=== PATIENT | female | born 1960 | race Caucasian/White ===

== ENCOUNTER 2016-09-03 11:56 | Emergency (ER) | payer MEDICARE ==
[~2016-09-03] VITALS: Ht 160 cm; Wt 65.0 kg
[2016-09-03 12:11] VITALS: Ht 160 cm; Wt 65.0 kg
--- NOTE | 2016-09-03 12:47 | ERD ---
ER Documentation Chief Complaint Date/Time DATE: 09/03/16 TIME: 12:45 Chief Complaint BIB RA FOR EVAL OF ETOH HPI 55-year-old female brought in from the community because of alcohol intoxication in public. An innocent bystander saw the patient. The patient admits to drinking. She is homeless. Patient denies any falls or trauma she denies any suicidal or homicidal ideation. She denies any fevers, chills, chest pain, shortness of breath. The patient is asking for food. ROS All systems reviewed and are negative except as per history of present illness. Medications Home Meds No Active Prescriptions or Reported Meds Allergies Allergies: Coded Allergies: No Known Drug Allergies (Verified Allergy, Unknown, 12/18/13) PMhx/Soc History of Surgery: No (OVARIAN CYST REMOVED 1980) Anesthesia Reaction: No Hx Neurological Disorder: No Hx Respiratory Disorders: No Hx Cardiac Disorders: Yes (HTN) Hx Psychiatric Problems: No Hx Miscellaneous Medical Probl: No Hx Alcohol Use: Yes Hx Substance Use: Yes Hx Tobacco Use: No Smoking Status: Current every day smoker FmHx Family History: No diabetes Physical Exam Vitals Vital Signs Date Time Temp Pulse Resp B/P Pulse Ox O2 Delivery O2 Flow Rate FiO2 09/03/16 12:11 97.8 89 19 146/79 100 Physical Exam General: Disheveled and malodorous but no significant distress Head: Normocephalic, atraumatic. Eyes: Pupils equally reactive, EOM intact ENT: Moist mucous membranes Neck: Supple, no lymphadenopathy Respiratory: Lungs clear bilaterally, no distress Cardiovascular: RRR, no murmurs, rubs, or gallops Abdominal: Soft, non-tender, non-distended, no peritoneal signs : Deferred MSK: No edema, no unilateral swelling, 5/5 strength Neurologic: Slightly intoxicated however alert and oriented, moving all extremities, normal speech, no focal weakness, no cerebellar signs Skin: No rash, no evidence of trauma Psych: Normal mood, denies suicidal ideation Procedures/MDM MEDICAL DECISION MAKING: The patient's presentation is consistent with acute alcohol intoxication, mild. The patient is conversive and appropriate. The patient will be given food. I have a much lower clinical concern for clinically significant traumatic brain injury, meningitis, significant electrolyte disturbance The patient's workup will include appropriate laboratory testing and diagnostic imaging, as well as observation for sobriety. The patient's presentation is most consistent with acute alcohol intoxication leading to acute encephalopathy. The patient is protecting their airway. The patient has no signs or symptoms concerning for impending respiratory failure and does not require intubation at this time. The patient will require observation in the emergency room to allow for metabolization. Once the patient is able to ambulate on their own accord, navigate the community the patient can be safely discharged from the emergency room. ER COURSE: The patient continues to be well-appearing and steady on her feet. Prior to discharge the patient could navigate the community, she refuses shoulder. The patient is safe for discharge. I kept the patient and/or family informed of laboratory and diagnostic imaging results throughout the emergency room course. DISPOSITION PLAN: We discussed follow up with the patient's primary care doctor within 24 to 48 hours as needed. We also discussed return to the emergency room for worsening symptoms or worsening condition. Departure Diagnosis: Primary Impression: Alcohol intoxication Complication of substance-induced condition: uncomplicated Qualified Code: F10.120 - Alcohol intoxication, uncomplicated Condition: Stable SUMAN NEGRO MD Sep 03, 2016 12:47
[2016-09-03 16:00] VITALS: BP 115/79; PULSE 70; RESP 19; TEMP 97.8
== END 2016-09-03 16:31 | disposition home or self-care (01) ==
LOC: E/R 11:56
DX: F10.120 Alcohol abuse with intoxication, uncomplicated (principal); I10 Essential (primary) hypertension; F17.210 Nicotine dependence, cigarettes, uncomplicated; R40.2142 Coma scale, eyes open, spontaneous, at arrival to emergency department; R40.2252 Coma scale, best verbal response, oriented, at arrival to emergency department; R40.2362 Coma scale, best motor response, obeys commands, at arrival to emergency department
CPT/HCPCS: 99283

== ENCOUNTER 2017-05-18 16:21 | Inpatient (IN) | payer MEDICARE ==
[~2017-05-18] VITALS: Ht 160 cm; Wt 59.0 kg
[2017-05-18] MEDS ORDERED: SOD CHLORIDE 0.9% 1,000 ML IV STA (17:05)
[2017-05-18 17:45] LABS: BASOPHILS % 0.6 % (0.0-2.0); EOSINOPHILS % 0.6 % (0.0-7.0); HEMATOCRIT 34.1 % (37.0-47.0); HEMOGLOBIN 11.1 g/dl (12.0-16.0); LYMPHOCYTES % 19.5 % (15.0-51.0); MEAN CORPUSCULAR HEMOGLOBIN 33.1 pg (29.0-33.0); MEAN CORPUSCULAR HGB CONC 32.6 g/dl (32.0-37.0); MEAN CORPUSCULAR VOLUME 101.8 fl (82.0-101.0); MONOCYTE # 0.7 10^3/ul (0.3-0.9); MONOCYTES % 14.4 % (0.0-11.0); NEUTROPHIL # 3.2 10^3/ul (1.6-7.5); NEUTROPHILS % 62.2 % (39.0-77.0); NUCLEATED RED BLOOD CELLS # 0.2 10^3/ul (0.0-0.0); NUCLEATED RED BLOOD CELLS% 3.3 /100WBC (0.0-0.0); PLATELET COUNT 110 10^3/UL (140-415); RED BLOOD COUNT 3.35 10^6/ul (4.20-5.40); RED CELL DISTRIBUTION WIDTH 18.2 % (11.5-14.5); WHITE BLOOD COUNT 5.1 10^3/ul (4.8-10.8)
--- NOTE | 2017-05-18 18:06 | RADRPT ---
PROCEDURE: Right upper quadrant ultrasound CLINICAL INDICATION: Alcoholic. Jaundice. TECHNIQUE: Multiple real-time images were acquired of the patient's abdomen and right retroperiton eum utilizing a high resolution transducer. COMPARISON: CT dated 08/10/2013 FINDINGS: The liver is increased in echogenicity and measures 19.14 cm. No focal hepatic masses are seen. Th e gallbladder is physiologically distended. There is no evidence of gallstones, gallbladder wall th ickening, or pericholecystic fluid. The intra and extrahepatic bile ducts are normal in caliber. T he common bile duct measures 2.83 mm. Midline images demonstrate the pancreas to be normal in echogenicity without obvious inflammatory ch allen. Survey views of the right kidney demonstrate no evidence of hydronephrosis or renal calculi. The ri ght kidney measures 11.2 cm. IMPRESSION: 1. No evidence of cholelithiasis or acute cholecystitis. 2. No biliary duct dilatation. 3. Fatty liver 4. Borderline hepatomegaly RPTAT: HH .Eliezer Fernando MD, Date Time Electronically viewed and signed by .Eliezer Fernando MD, on 05/18/2017 18:05 .W/
[2017-05-18 18:09] LABS: ALBUMIN 4.2 g/dl (3.3-4.9); ALBUMIN/GLOBULIN RATIO 1.05; BILIRUBIN,DIRECT 11.2 mg/dl (0.00-0.20); BILIRUBIN,INDIRECT 2.3 mg/dl (0-1.1); BILIRUBIN,TOTAL 13.5 mg/dl (0.2-1.3); CALCIUM 10.3 mg/dl (8.4-10.2); CREATININE 0.59 mg/dl (0.44-1.00); TOTAL PROTEIN 8.2 g/dl (6.1-8.1)
[2017-05-18 18:29] LABS: POTASSIUM 2.9 mmol/L (3.5-5.1)
[2017-05-18] MEDS ORDERED: POTASSIUM CHLORIDE (SR) 20 MEQ TAB PO STA (18:58)
[2017-05-18] MEDS ORDERED: ACETAMINOPHEN 325 MG TAB PO PRN ×2 (20:00→21:00)
[2017-05-18] MEDS ORDERED: ONDANSETRON 4 MG INJ IV PRN ×2 (20:00→21:00)
--- NOTE | 2017-05-18 20:09 | ERA ---
ER Documentation Chief Complaint Date/Time DATE: 05/18/17 TIME: 20:01 Chief Complaint bib ems from clinic for cc jaundice HPI . 56-year-old female was sent from the clinic for acute onset jaundice and icterus that has only been going on for supposedly a few days. Patient stated that she does drink alcohol chronically. States that her liver enzymes were checked a few months ago and were normal. No alcohol intake today. ROS All systems reviewed and are negative except as per history of present illness. Medications Home Meds No Active Prescriptions or Reported Meds Allergies Allergies: Coded Allergies: No Known Drug Allergies (Verified Allergy, Unknown, 12/18/13) PMhx/Soc History of Surgery: No (OVARIAN CYST REMOVED 1980,COLON SX) Anesthesia Reaction: No Hx Neurological Disorder: No Hx Respiratory Disorders: No Hx Cardiac Disorders: Yes (HTN) Hx Psychiatric Problems: No Hx Miscellaneous Medical Probl: No Hx Alcohol Use: Yes Hx Substance Use: Yes Hx Tobacco Use: No Physical Exam Vitals Vital Signs Date Time Temp Pulse Resp B/P Pulse Ox O2 Delivery O2 Flow Rate FiO2 05/18/17 16:29 98.7 103 20 157/87 100 Physical Exam Const: [] No distress Head: Atraumatic Eyes: Market scleral icterus, neon yellow, EOMI, PERRLA ENT: Normal External Ears, Nose and Mouth. Neck: Full range of motion..~ No meningismus. Resp: Clear to auscultation bilaterally Cardio: Regular rate and rhythm, no murmurs Abd: Soft, non tender, non distended. Normal bowel sounds. Abdominal percussion showing liver approximately 9 cm Skin: No petechiae or rashes Back: No midline or flank tenderness Ext: No cyanosis, or edema Neur: Awake and alert and oriented x 3, no focal deficits. Psych: Normal Mood and Affect Result Diagram: 05/18/17 1720 05/18/17 1720 Results 24 hrs Laboratory Tests Test 05/18/17 17:20 White Blood Count 5.110^3/ul Red Blood Count 3.3510^6/ul Hemoglobin 11.1g/dl Hematocrit 34.1% Mean Corpuscular Volume 101.8fl Mean Corpuscular Hemoglobin 33.1pg Mean Corpuscular Hemoglobin Concent 32.6g/dl Red Cell Distribution Width 18.2% Platelet Count 40548^3/UL Mean Platelet Volume 12.0fl Neutrophils % 62.2% Lymphocytes % 19.5% Monocytes % 14.4% Eosinophils % 0.6% Basophils % 0.6% Nucleated Red Blood Cells % 3.3/100WBC Neutrophils # 3.210^3/ul Lymphocytes # 1.010^3/ul Monocytes # 0.710^3/ul Eosinophils # 0.010^3/ul Basophils # 0.010^3/ul Nucleated Red Blood Cells # 0.210^3/ul Sodium Level 140mmol/L Potassium Level 2.9mmol/L Chloride Level 99mmol/L Carbon Dioxide Level 26mmol/L Anion Gap 18 Blood Urea Nitrogen 3mg/dl Creatinine 0.59mg/dl Glucose Level 104mg/dl Calcium Level 10.3mg/dl Total Bilirubin 13.5mg/dl Direct Bilirubin 11.20mg/dl Indirect Bilirubin 2.3mg/dl Aspartate Amino Transf (AST/SGOT) 633IU/L Alanine Aminotransferase (ALT/SGPT) 218IU/L Alkaline Phosphatase 945IU/L Total Protein 8.2g/dl Albumin 4.2g/dl Globulin 4.00g/dl Albumin/Globulin Ratio 1.05 Lipase 251U/L Current Medications Medications (Trade) Dose Ordered Sig/Felicia Route PRN Reason Start Time Stop Time Status Last Admin Dose Admin Sodium Chloride (NS) 1,000 ml @ 1,000 mls/hr Q1H STAT IV 05/18/17 17:05 05/18/17 18:04 DC 05/18/17 17:35 Potassium Chloride (Klor-Con 20) 40 meq ONCE STAT PO 05/18/17 18:58 05/18/17 19:05 DC 05/18/17 19:15 Procedures/MDM 56-year-old female with market hyperbilirubinemia with liver failure. This is due to alcoholism. Over this is new onset with the patient's jaundice. She also had hypokalemia and was given K-Dur tab.Patient does not have good outpatient follow-up. She is she would definitely benefit from admission for GI consult. I very spoken Dr. Puentes who is going to see the patient in the hospital. She will be admitted to prevent progression to the transplant needed fulminant liver failure. Spoke with Dr. Dr. Pena will be admitting to [facility]. Right upper quadrant ultrasound interpretation: Fatty liver with no other acute process that I can see. No gallstones, no pericystic colic fluid or gallbladder wall thickening, no dilated duct. Departure Diagnosis: Primary Impression: Acute liver failure Additional Impressions: Hyperbilirubinemia Hypokalemia Thrombocytopenia Condition: Serious ROBERTVALENTIN DO May 18, 2017 20:09
[2017-05-18 20:23] VITALS: TEMP 98.5
[2017-05-18] MEDS ORDERED: SOD CHLORIDE 0.9% 1,000 ML IV SCH (20:50)
[2017-05-18] MEDS ORDERED: NACL 0.9% 3 ML SYG IV SCH (21:00)
[2017-05-18] MEDS: FAMOTIDINE 20 MG TAB PO SCH (21:37)
[2017-05-18] MEDS ORDERED: LORAZEPAM 2 MG INJ IV ONE (22:30)
[2017-05-19 00:16] VITALS: BP 139/79; RESP 20
[2017-05-19 01:17] VITALS: Ht 160 cm; Wt 59.0 kg
[2017-05-19 02:00] VITALS: BP 125/66; PULSE 77; RESP 18
[2017-05-19 05:48] LABS: HAAIG REFLEX REFLEX FILED
[2017-05-19 05:55] LABS: BASOPHILS % 0.5 % (0.0-2.0); HEMATOCRIT 27.8 % (37.0-47.0); LYMPHOCYTES # 1.1 10^3/ul (0.8-2.9); LYMPHOCYTES % 28.6 % (15.0-51.0); MEAN CORPUSCULAR HEMOGLOBIN 33.3 pg (29.0-33.0); MEAN CORPUSCULAR HGB CONC 32.4 g/dl (32.0-37.0); MEAN PLATELET VOLUME 11.6 fl (7.4-10.4); MONOCYTE # 0.6 10^3/ul (0.3-0.9); MONOCYTES % 15.9 % (0.0-11.0); NEUTROPHILS % 51.7 % (39.0-77.0); NUCLEATED RED BLOOD CELLS # 0.1 10^3/ul (0.0-0.0); NUCLEATED RED BLOOD CELLS% 2.8 /100WBC (0.0-0.0); PLATELET COUNT 102 10^3/UL (140-415); RED CELL DISTRIBUTION WIDTH 18.8 % (11.5-14.5); WHITE BLOOD COUNT 3.9 10^3/ul (4.8-10.8)
--- NOTE | 2017-05-19 06:27 | HP ---
Date/Time of Note Date/Time of Note DATE: 05/19/17 TIME: 06:09 Assessment/Plan VTE Prophylaxis VTE Prophylaxis Intervention: SCD's Lines/Catheters IV C[facility]ter Type [facility]from [facility]): Peripheral IV Urinary Cath still in place: No Assessment/Plan Chief Complaint/Hosp Course This is a 56-year-old female being [facility] floor for: #1 Jaundice: Elevated liver function tests including a direct bilirubin level of 10 reflecting likely underlying acute liver failure. Patient does have a previous history of alcohol use which likely could be the culprit however we will also check a hepatitis panel, alpha-1 antitrypsin, serum plasma, as well as for autoimmune hepatitis. Will check a reticulocyte count and lactate dehydrogenase. Will not provide any glucocorticoids as the data does not support the use of this at this time. Will consult GI for further evaluation. Will order MRI of the abdomen. Patient will likely need a liver biopsy. Will check a blood alcohol level and an ammonia level, and start lactulose as indicated #2 Macrocytic anemia: We will check iron studies, B12, folate levels. #3 hypokalemia: Repleted in the ED, will repeat a BMP and replete as indicated #4 EtOH abuse: Patient reports she has a daily drinking history of only 1 beer in the last 6 months and prior to that she was a heavy drinker. Will obtain blood alcohol level. As needed Ativan as needed. #5 DVT GI prophylaxis: SCDs, acid mauro Further treatment strategy will be implemented as per the clinical course Problems: HPI/ROS Admit Date/Time Admit Date/Time May 18, 2017 at 20:00 Hx of Present Illness Chief complaint: Yellow all over This is a 56-year-old female was sent from the clinic for acute onset jaundice and icterus that has only been going on for supposedly a few days. Patient states that she noticed yesterday her eyes turning yellow and then today her skin was yellow. She reports that she was a heavy drinker 6 months ago however now only drinks about 1 beer a day. She reports that 3 months ago she had her LFTs checked and they were all normal. Patient denies any fevers. Denies any nausea or vomiting. She does reports that she lives in her van as she is homeless and in the daytime sugars a house with multiple people. She does state that she has a back wound secondary to her sleeping on her van. Denies any history of cirrhosis. Allergies: NKDA Medications: None ROS Const: As per HPI Eyes : As per HPI ENT: No pain, sore throat, congestion, congestion, dysphagia or discharge Respiratory: No shortness of breath, cough, sputum, wheezing, or pleuritic pain Cardiovascular: No chest pain, palpitation, PND, or edema GI : As per HPI Genitourinary: No dysuria, hematuria, flank pain , discharge or CVA tenderness Musculoskeletal: No joint pain, back pain, neck pain, restricted range of motion in neck or joints Skin: As per HPI Neuro: No headache, dizziness, syncope, seizure, focal weakness Endocrine: No polyuria, polydipsia, temperature intolerance Psych: No hallucination, depression, anxiety or suicidal ideation PMH/Family/Social Past Medical History Insomnia, PCOS Past Surgical History Ovarian surgery secondary to PCOS, bowel obstruction surgery Family History Significant Family History: diabetes Social History Alcohol Use: other (Reports one beer a day for the last 6 months prior to that she was a heavy drinker) Smoking Status: Never smoker Drug Use: none Exam/Review of Systems Vital Signs Vitals Vital Signs Date Time Temp Pulse Resp B/P Pulse Ox O2 Delivery O2 Flow Rate FiO2 05/19/17 02:00 97.9 77 18 125/66 98 Room Air Intake and Output 05/18/17 05/18/17 05/19/17 15:00 23:00 07:00 Intake Total 300 ml Output Total 600 ml Balance -300 ml Exam Exam General: Patient is lying in bed in no acute distress, she is displaying generalized jaundice HEENT: Bilateral icterus, normocephalic atraumatic Neck: Supple with full range of motion. No rigidity or meningismus Lungs: Clear to auscultation bilaterally no crackles rales or wheezing Heart: Normal S1-S2, Regular rhythm and rate. No overt murmurs appreciated Abdomen: Soft, right upper quadrant tenderness to palpation, suspected hepatomegaly on palpation, Extremities: Normal to inspection, no edema no cyanosis Neurologic: Normal mental status, speech normal, cranial nerves II through XII are intact, motor and sensory are intact, no focal weakness Skin: Jaundice of the face and chest and bilateral upper extremities, Additional Comments PROCEDURE: Right upper quadrant ultrasound CLINICAL INDICATION: Alcoholic. Jaundice. TECHNIQUE: Multiple real-time images were acquired of the patient's abdomen and right retroperitoneum utilizing a high resolution transducer. COMPARISON: CT dated 08/10/2013 FINDINGS: The liver is increased in echogenicity and measures 19.14 cm. No focal hepatic masses are seen. The gallbladder is physiologically distended. There is no evidence of gallstones, gallbladder wall thickening, or pericholecystic fluid. The intra and extrahepatic bile ducts are normal in caliber. The common bile duct measures 2.83 mm. Midline images demonstrate the pancreas to be normal in echogenicity without obvious inflammatory change. Survey views of the right kidney demonstrate no evidence of hydronephrosis or renal calculi. The right kidney measures 11.2 cm. IMPRESSION: 1. No evidence of cholelithiasis or acute cholecystitis. 2. No biliary duct dilatation. 3. Fatty liver 4. Borderline hepatomegaly RPTAT: HH .Eliezer Fernando MD, MD Date Time Electronically viewed and signed by .Eliezer Fernando MD, on 05/18/2017 18:05 Labs Result Diagram: 05/18/17 1720 05/18/17 1720 Medications Medications Current Medications Sodium Chloride (NS) 1,000 ml @ 60 mls/hr [id number] IV Last administered on 05/18 23:59; Admin Dose 60 MLS/HR; Start 05/18/17 at 20:50 Ondansetron HCl (Zofran Inj) 4 mg Q6H PRN IV NAUSEA AND/OR VOMITING; Start at 21:00 Acetaminophen (Tylenol Tab) 650 mg Q6H PRN PO PAIN LEVEL 1-3 OR FEVER; Start at 21:00 Famotidine (Pepcid) 20 mg Q12 PO Last administered on 05/18/17 21:37; Admin Dose 20 MG; Start 05/18/17 at 21:00 Lorazepam (Ativan) 0.5 mg ONCE ONCE IV ; Start 05/19/17 at 08:30; Stop at 08:31 CHRISTINE MOYA May 19, 2017 06:24
[2017-05-19] MEDS: LACTULOSE 30ML CUP PO SCH ×3 (06:38→17:15)
[2017-05-19 06:52] LABS: ALBUMIN 2.9 g/dl (3.3-4.9); BILIRUBIN,DIRECT 5.5 mg/dl (0.00-0.20); BILIRUBIN,INDIRECT 2.1 mg/dl (0-1.1); BILIRUBIN,TOTAL 7.6 mg/dl (0.2-1.3); CALCIUM 8.8 mg/dl (8.4-10.2); CHOL/HDL RATIO 6.9 RATIO; CREATININE 0.54 mg/dl (0.44-1.00); MAGNESIUM 1.2 mg/dl (1.7-2.5); PHOSPHORUS 2.2 mg/dl (2.5-4.9); TOTAL PROTEIN 5.8 g/dl (6.1-8.1)
[2017-05-19 06:59] LABS: T3 UPTAKE 46.6 % (23.5-40.5)
[2017-05-19 07:06] LABS: POTASSIUM 2.9 mmol/L (3.5-5.1)
[2017-05-19 07:12] LABS: THYROID STIMULATING HORMONE 5.48 MIU/L (0.465-4.680)
[2017-05-19 07:19] LABS: RETICULOCYTE COUNT % 6.6 % (0.5-1.5)
[2017-05-19 07:37] LABS: INR 0.96; PROTIME 12.8 Sec (12.2-14.2)
[2017-05-19 07:38] LABS: PARTIAL THROMBOPLASTIN TIME 24.8 Sec (25.0-35.0)
[2017-05-19 08:02] VITALS: BP 124/84; RESP 18
[2017-05-19] MEDS ORDERED: LORAZEPAM 2 MG INJ IV ONE (08:30)
[2017-05-19] MEDS: FAMOTIDINE 20 MG TAB PO SCH ×2 (08:33→20:12)
[2017-05-19 08:38] LABS: IRON 144 ug/dl (35-150)
[2017-05-19] MEDS: POTASSIUM CHLORIDE 250 ML IVPB SCH ×2 (08:45→14:17)
[2017-05-19 08:48] LABS: TOTAL IRON BINDING CAPACITY 217 ug/dl (241-421)
[2017-05-19 09:28] LABS: HEPATITIS B CORE ANTIBODY NEGATIVE (NEGATIVE)
[2017-05-19 09:44] LABS: FOLATE 16.9 ng/ml (2.8-20.0)
[2017-05-19] MEDS ORDERED: POTASSIUM CHLORIDE (SR) 20 MEQ TAB PO STA (10:06)
[2017-05-19] MEDS ORDERED: POTASSIUM CHLORIDE 250 ML IVPB ONE (10:30)
[2017-05-19 14:59] VITALS: BP 120/78; RESP 18
--- NOTE | 2017-05-19 16:29 | RADRPT ---
PROCEDURE: MRI Abdomen without contrast and MRCP. CLINICAL INDICATION: Liver failure. Jaundice. TECHNIQUE: Multiplanar and multisequence MRI of the abdomen and MRCP was performed without contrast . 3-D/multiplanar reformations were performed by the technologist and an independent workstation. E valuation is partially limited due to motion artifact. COMPARISON: Abdominal ultrasounds dated 05/18/2017 and 07/16/2015. CT dated 08/10/2013. FINDINGS: MRI Abdomen: The visualized lung bases are grossly clear and the visualized heart is unremarkable. There is diffuse fatty infiltration of the liver, which is at the upper limits of normal in size ngoc suring 17.7 cm in length. The spleen and adrenal glands are unremarkable. The pancreas is normal in appearance with focal mass lesion. There is bilateral extrarenal pelvis. There are no renal masses or hydronephrosis. The aorta is nonaneurysmal. There is a solitary enlarged periportal node measuring 11 mm in short a xis. There is no retroperitoneal adenopathy. The visualized bowel demonstrates no wall thickening or evidence of obstruction. No concerning marrow signal abnormality is identified. MRCP: There is no intra or extrahepatic biliary ductal dilatation or filling defect within the bili oskar tree. There is no pancreatic ductal dilatation or intraluminal filling defect. There are tiny d ilated radicles arising from the pancreatic duct throughout the pancreas The gallbladder is normal i n appearance with no cholelithiasis, wall thickening, or pericholecystic fluid or inflammatory greco e. IMPRESSION: 1. Borderline hepatomegaly and hepatic steatosis. 2. Solitary enlarged periportal node measuring 11 mm in short axis, which is nonspecific. Attention on follow-up is recommended. 3. Unremarkable MRCP. 4. Tiny dilated radicles arising from the pancreatic duct throughout the pancreas, likely of little clinical significance. RPTAT: [facility] .Harry Barragan MD, MD Date Time Electronically viewed and signed by .Harry Barragan MD, MD on 05/19/2017 16:29 .P/
--- NOTE | 2017-05-19 18:15 | CONS ---
Date/Time of Note Date/Time of Note DATE: 05/19/17 TIME: 18:15 Assessment/Plan Assessment/Plan Additional Assessment/Plan Assessment: * Abnormal liver function test * Most likely alcohol induced liver disease as hepatitis serologies negative, all other serologies pending i.e. DERIK, ASMA * Alcohol abuse * Patient claims drinking only 1 beer every morning reliability questionable Plan: * Monitor liver function test * Await other serologies * Abstinence Consultation Date/Type/Reason Admit Date/Time May 18, 2017 at 20:00 Date of Consultation: May 18, 2017 Reason for Consultation Jaundice Hx of Present Illness 56-year-old female chronic ethanol abuse, hospitalized with abnormal liver function test. Possibility of nonalcoholic liver disease is being ruled out although she probably suffers from alcoholic hepatitis superimposed on chronic liver disease. At the present time the patient appears comfortable denies abdominal pain, nausea vomiting. Laboratories have been sent and are pending at this time. I will follow the patient. Constitutional: improved, no complaints Eyes: no complaints ENT: no complaints Respiratory: no complaints Cardiovascular: no complaints Gastrointestinal: no complaints, other (See HPI) Genitourinary: no complaints Musculoskeletal: no complaints Skin: no complaints Neurologic: no complaints Endocrine: no complaints Lymphatic: no complaints Psychological: nl mood/affect, no complaints Immunologic: no complaints Past Medical History Medical History: no pertinent history Past Surgical History Past Surgical Hx: no surgical history Family History Significant Family History: no pertinent family hx Social History Alcohol Use: other (Patient reports 1 beer a day which is not corroborated and appears unlikely) Smoking Status: Never smoker Drug Use: none Exam/Review of Systems Vital Signs Vitals Vital Signs Date Time Temp Pulse Resp B/P Pulse Ox O2 Delivery O2 Flow Rate FiO2 05/19/17 14:59 98.3 96 18 120/78 99 05/19/17 02:00 Room Air Intake and Output 05/18/17 05/18/17 05/19/17 15:00 23:00 07:00 Intake Total 300 ml Output Total 600 ml Balance -300 ml Exam PHYSICAL EXAMINATION: GENERAL: Well developed, well nourished, alert & oriented x 3, in no acute distress SKIN: Jaundiced. No lesions, positive stigmata chronic liver disease, no evidence of bleeding diathesis LYMPHATIC: No palpable lymphadenopathy. HEAD: Normocephalic, atraumatic, no tenderness. EYES: Pupils equal reactive to light and accommodation, full extraocular movements, sclera clear, non-icteric, no discharge. EARS/NOSE AND THROAT: Ears normal, nose normal, oropharynx normal, oral membranes well hydrated without lesions. NECK: Supple, no masses, thyroid normal, JVP within normal limits, carotids normal without bruits. CHEST: Inspection within normal limits, breasts grossly normal. CARDIOVASCULAR: Heart: Regular rate and rhythm, no murmurs, gallops or rubs. Peripheral pulses present within normal limits, no cyanosis, clubbing or edemas. No pulsatile abdominal mass RESPIRATORY: Lungs clear to auscultation and percussion, no wheezing, no rubs GASTROINTESTINAL AND LIVER: Abdomen: Soft, non tenderness, non-distended, no hernias, no masses, no organomegaly, no ascites, no guarding, no rebound tenderness, normoactive bowel sounds. Rectal: Deferred. GENITOURINARY: [Female genitalia within normal limits.] MUSCULO-SKELETAL: Gait and station within normal limits, range of motion adequate. Results Result Diagram: 05/19/17 0452 05/19/17 0452 Results 24 hrs Laboratory Tests Test 05/18/17 20:40 05/19/17 04:52 05/19/17 04:58 05/19/17 05:00 Ammonia 72 H White Blood Count 3.9 #L Red Blood Count 2.70 L Hemoglobin 9.0 L Hematocrit 27.8 L Mean Corpuscular Volume 103.0 H Mean Corpuscular Hemoglobin 33.3 H Mean Corpuscular Hemoglobin Concent 32.4 Red Cell Distribution Width 18.8 H Platelet Count 102 L Mean Platelet Volume 11.6 H Neutrophils % 51.7 Lymphocytes % 28.6 Monocytes % 15.9 H Eosinophils % 1.0 Basophils % 0.5 Nucleated Red Blood Cells % 2.8 H Neutrophils # 2.0 Lymphocytes # 1.1 Monocytes # 0.6 Eosinophils # 0.0 Basophils # 0.0 Nucleated Red Blood Cells # 0.1 H Sodium Level 139 Potassium Level 2.9 *L Chloride Level 104 Carbon Dioxide Level 28 Anion Gap 10 # Blood Urea Nitrogen 3 L Creatinine 0.54 Glucose Level 102 Hemoglobin A1c 5.1 Calcium Level 8.8 Phosphorus Level 2.2 L Magnesium Level 1.2 L Total Bilirubin 7.6 #H Direct Bilirubin 5.50 #H Indirect Bilirubin 2.1 H Aspartate Amino Transf (AST/SGOT) 372 H Alanine Aminotransferase (ALT/SGPT) 161 H Alkaline Phosphatase 614 H Total Protein 5.8 #L Albumin 2.9 #L Globulin 2.90 Albumin/Globulin Ratio 1.00 Triglycerides Level 178 H Cholesterol Level 257 H LDL Cholesterol, Calculated 184 HDL Cholesterol 37 Cholesterol/HDL Ratio 6.9 Thyroid Stimulating Hormone (TSH) 5.480 H Free Thyroxine Index 2.14 Thyroxine (T4) 4.6 L Triiodothyronine (T3) Uptake 46.6 H Hepatitis A Antibody Total NEGATIVE Hepatitis B Surface Antigen NEGATIVE Hepatitis B Surface Antibody POSITIVE H Hepatitis B Core Total Antibody NEGATIVE Hepatitis C Antibody NEGATIVE HIV (1&2) Antibody NEGATIVE Acetaminophen Level < 10.0 L Ferritin 879.0 H Test 05/19/17 06:32 Absolute Reticulocyte Count 0.180 H Percent Reticulocyte Count 6.6 H Prothrombin Time 12.8 Prothrombin Time Ratio 1.0 INR International Normalized Ratio 0.96 Activated Partial Thromboplast Time 24.8 L Iron Level 144 Total Iron Binding Capacity 217 L Percent Iron Saturation 66 H Lactate Dehydrogenase 881 H Vitamin B12 Level 791 Folate 16.9 Medications Medications Current Medications Ondansetron HCl (Zofran Inj) 4 mg Q6H PRN IV NAUSEA AND/OR VOMITING; Start at 21:00 Acetaminophen (Tylenol Tab) 650 mg Q6H PRN PO PAIN LEVEL 1-3 OR FEVER; Start at 21:00 Famotidine (Pepcid) 20 mg Q12 PO Last administered on 05/18/17 21:37; Admin Dose 20 MG; Start 05/18/17 at 21:00 Lactulose (Enulose) 20 gm Q6 PO Last administered on 05/19/17 06:38; Admin Dose 20 GM; Start 05/19/17 at 06:30 NITHYA MELGAR MD May 19, 2017 18:15
--- NOTE | 2017-05-19 18:24 | PN ---
Date/Time of Note Date/Time of Note DATE: 05/19/17 TIME: 18:20 Assessment/Plan VTE Prophylaxis VTE Prophylaxis Intervention: LMWH Lines/Catheters [facility] (from [facility] Peripheral IV Urinary Cath still in place: No Assessment/Plan Chief Complaint/Hosp Course 56 yo female with former etoh disorder now 1 beer per day for past 6 months presenting with painless jaundice/hepatitis Hepatitis: - Suspect this is alcoholic hepatitis, though reports minimal etoh in past 6 months - MR showing only mild hepatomegaly - Serologies negative - Consider biopys, further serologies in progress - Trend LFTs Hypokalemia: - Repletion as needed Pancytopenia: - 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 Macrocytic anemia Discharge to home followign liver dx Problems: Subjective 24 Hr Interval Summary Free Text/Dictation Feels well No localizing symptoms Only complaint is jaundice No itching Exam/Review of Systems Vital Signs Vitals Vital Signs Date Time Temp Pulse Resp B/P Pulse Ox O2 Delivery O2 Flow Rate FiO2 05/19/17 14:59 98.3 96 18 120/78 99 05/19/17 02:00 Room Air Intake and Output 05/18/17 05/18/17 05/19/17 15:00 23:00 07:00 Intake Total 300 ml Output Total 600 ml Balance -300 ml Exam Jaundiced Normal mentation, no HE No clear stigmata of cirrhosis RRR Clear lugns, nonlabored No edema Soft belly, + palpable liver edge, nontender, no ascites Results Result Diagram: 05/19/17 0452 05/19/17 0452 Results 24 hrs Laboratory Tests Test 05/18/17 20:40 05/19/17 04:52 05/19/17 04:58 05/19/17 05:00 Ammonia 72 H White Blood Count 3.9 #L Red Blood Count 2.70 L Hemoglobin 9.0 L Hematocrit 27.8 L Mean Corpuscular Volume 103.0 H Mean Corpuscular Hemoglobin 33.3 H Mean Corpuscular Hemoglobin Concent 32.4 Red Cell Distribution Width 18.8 H Platelet Count 102 L Mean Platelet Volume 11.6 H Neutrophils % 51.7 Lymphocytes % 28.6 Monocytes % 15.9 H Eosinophils % 1.0 Basophils % 0.5 Nucleated Red Blood Cells % 2.8 H Neutrophils # 2.0 Lymphocytes # 1.1 Monocytes # 0.6 Eosinophils # 0.0 Basophils # 0.0 Nucleated Red Blood Cells # 0.1 H Sodium Level 139 Potassium Level 2.9 *L Chloride Level 104 Carbon Dioxide Level 28 Anion Gap 10 # Blood Urea Nitrogen 3 L Creatinine 0.54 Glucose Level 102 Hemoglobin A1c 5.1 Calcium Level 8.8 Phosphorus Level 2.2 L Magnesium Level 1.2 L Total Bilirubin 7.6 #H Direct Bilirubin 5.50 #H Indirect Bilirubin 2.1 H Aspartate Amino Transf (AST/SGOT) 372 H Alanine Aminotransferase (ALT/SGPT) 161 H Alkaline Phosphatase 614 H Total Protein 5.8 #L Albumin 2.9 #L Globulin 2.90 Albumin/Globulin Ratio 1.00 Triglycerides Level 178 H Cholesterol Level 257 H LDL Cholesterol, Calculated 184 HDL Cholesterol 37 Cholesterol/HDL Ratio 6.9 Thyroid Stimulating Hormone (TSH) 5.480 H Free Thyroxine Index 2.14 Thyroxine (T4) 4.6 L Triiodothyronine (T3) Uptake 46.6 H Hepatitis A Antibody Total NEGATIVE Hepatitis B Surface Antigen NEGATIVE Hepatitis B Surface Antibody POSITIVE H Hepatitis B Core Total Antibody NEGATIVE Hepatitis C Antibody NEGATIVE HIV (1&2) Antibody NEGATIVE Acetaminophen Level < 10.0 L Ferritin 879.0 H Test 05/19/17 06:32 Absolute Reticulocyte Count 0.180 H Percent Reticulocyte Count 6.6 H Prothrombin Time 12.8 Prothrombin Time Ratio 1.0 INR International Normalized Ratio 0.96 Activated Partial Thromboplast Time 24.8 L Iron Level 144 Total Iron Binding Capacity 217 L Percent Iron Saturation 66 H Lactate Dehydrogenase 881 H Vitamin B12 Level 791 Folate 16.9 Medications Medications Current Medications Ondansetron HCl (Zofran Inj) 4 mg Q6H PRN IV NAUSEA AND/OR VOMITING; Start at 21:00 Acetaminophen (Tylenol Tab) 650 mg Q6H PRN PO PAIN LEVEL 1-3 OR FEVER; Start at 21:00 Famotidine (Pepcid) 20 mg Q12 PO Last administered on 05/18/17 21:37; Admin Dose 20 MG; Start 05/18/17 at 21:00 Lactulose (Enulose) 20 gm Q6 PO Last administered on 05/19/17 06:38; Admin Dose 20 GM; Start 05/19/17 at 06:30 GEORGIANA SAHNI MD May 19, 2017 18:24
--- NOTE | 2017-05-19 18:34 | QN ---
Documentation Comment Interim consult note, full note to follow Assessment: * Abnormal liver function test * Most likely alcohol induced liver disease as hepatitis serologies negative, all other serologies pending i.e. DERIK, ASMA * Alcohol abuse * Patient claims drinking only 1 beer every morning reliability questionable Plan: * Monitor liver function test * Await other serologies * Abstinence NITHYA MELGAR MD May 19, 2017 18:34
[2017-05-19 20:23] VITALS: BP 103/67; RESP 20
[2017-05-19] MEDS: LORAZEPAM 1 MG TAB PO SCH (22:21)
[2017-05-20 05:10] LABS: BASOPHILS % 0.9 % (0.0-2.0); EOSINOPHILS % 0.7 % (0.0-7.0); HEMATOCRIT 30.8 % (37.0-47.0); HEMOGLOBIN 9.6 g/dl (12.0-16.0); LYMPHOCYTES # 1.1 10^3/ul (0.8-2.9); LYMPHOCYTES % 25.1 % (15.0-51.0); MEAN CORPUSCULAR HEMOGLOBIN 33.6 pg (29.0-33.0); MEAN CORPUSCULAR HGB CONC 31.2 g/dl (32.0-37.0); MEAN CORPUSCULAR VOLUME 107.7 fl (82.0-101.0); MEAN PLATELET VOLUME 10.9 fl (7.4-10.4); MONOCYTE # 0.8 10^3/ul (0.3-0.9); MONOCYTES % 17.4 % (0.0-11.0); NEUTROPHIL # 2.3 10^3/ul (1.6-7.5); NEUTROPHILS % 53.8 % (39.0-77.0); NUCLEATED RED BLOOD CELLS # 0.1 10^3/ul (0.0-0.0); NUCLEATED RED BLOOD CELLS% 2.3 /100WBC (0.0-0.0); PLATELET COUNT 119 10^3/UL (140-415); RED BLOOD COUNT 2.86 10^6/ul (4.20-5.40); RED CELL DISTRIBUTION WIDTH 19.8 % (11.5-14.5); WHITE BLOOD COUNT 4.3 10^3/ul (4.8-10.8)
[2017-05-20 05:24] LABS: ALBUMIN 3.3 g/dl (3.3-4.9); ALBUMIN/GLOBULIN RATIO 1.03; BILIRUBIN,DIRECT 3.5 mg/dl (0.00-0.20); BILIRUBIN,INDIRECT 1.9 mg/dl (0-1.1); BILIRUBIN,TOTAL 5.4 mg/dl (0.2-1.3); CALCIUM 8.4 mg/dl (8.4-10.2); CREATININE 0.58 mg/dl (0.44-1.00); POSITIVE DIFF @See below; POTASSIUM 3.9 mmol/L (3.5-5.1); TOTAL PROTEIN 6.5 g/dl (6.1-8.1)
[2017-05-20] MEDS: LACTULOSE 30ML CUP PO SCH ×4 (06:06→17:05)
[2017-05-20 08:30] VITALS: BP 127/78; RESP 20
[2017-05-20] MEDS: FAMOTIDINE 20 MG TAB PO SCH ×2 (09:31→20:55)
[2017-05-20 13:01] LABS: HSV 1 IGG ANTIBODY 9.15 index; HSV 2 IGG ANTIBODY 6.34 index
[2017-05-20 13:46] LABS: ANA SCREEN NEGATIVE (NEGATIVE); MYELOPEROXIDASE ANTIBODY <1.0 AI; PROTEINASE-3 ANTIBODY <1.0 AI
[2017-05-20 15:22] VITALS: BP 109/69; RESP 20
--- NOTE | 2017-05-20 15:59 | PN ---
Date/Time of Note Date/Time of Note DATE: 05/20/17 TIME: 15:56 Assessment/Plan VTE Prophylaxis VTE Prophylaxis Intervention: SCD's Lines/Catheters [facility] Saline Lock Urinary Cath still in place: No Assessment/Plan Assessment/Plan Assessment: * Abnormal liver function test * Most likely alcohol induced liver disease as hepatitis serologies negative, * Alcohol abuse Plan: * Monitor liver function test * Continue present management * Abstinence * Case discussed with Dr Puentes * Further orders will depend on clinical course Subjective 24 Hr Interval Summary Free Text/Dictation * Course reviewed * Patient seen and examined * DERIK/ASMA negative * no untoward incident overnight Exam/Review of Systems Vital Signs Vitals Vital Signs Date Time Temp Pulse Resp B/P Pulse Ox O2 Delivery O2 Flow Rate FiO2 05/20/17 15:22 98.5 96 20 109/69 96 05/19/17 02:00 Room Air Intake and Output 05/19/17 05/19/17 05/20/17 15:00 23:00 07:00 Intake Total 410 ml 840 ml 470 ml Output Total 5 ml Balance 410 ml 835 ml 470 ml Exam Constitutional: alert Neck: non-tender, supple Respiratory: clear to auscultation, normal air movement Cardiovascular: nl pulses, regular rate and rhythm Gastrointestinal: non-tender, soft Musculoskeletal: nl extremities to inspection Extremities: normal pulses Neurological: nl mental status Results Result Diagram: 05/20/17 0438 05/20/17 0438 Results 24 hrs Laboratory Tests Test 05/20/17 04:38 White Blood Count 4.3 L Red Blood Count 2.86 L Hemoglobin 9.6 L Hematocrit 30.8 L Mean Corpuscular Volume 107.7 H Mean Corpuscular Hemoglobin 33.6 H Mean Corpuscular Hemoglobin Concent 31.2 L Red Cell Distribution Width 19.8 H Platelet Count 119 L Mean Platelet Volume 10.9 H Neutrophils % 53.8 Lymphocytes % 25.1 Monocytes % 17.4 H Eosinophils % 0.7 Basophils % 0.9 Nucleated Red Blood Cells % 2.3 H Neutrophils # 2.3 Lymphocytes # 1.1 Monocytes # 0.8 Eosinophils # 0.0 Basophils # 0.0 Nucleated Red Blood Cells # 0.1 H Sodium Level 140 Potassium Level 3.9 Chloride Level 104 Carbon Dioxide Level 28 Anion Gap 12 Blood Urea Nitrogen 2 L Creatinine 0.58 Glucose Level 114 Calcium Level 8.4 Total Bilirubin 5.4 #H Direct Bilirubin 3.50 #H Indirect Bilirubin 1.9 H Aspartate Amino Transf (AST/SGOT) 255 H Alanine Aminotransferase (ALT/SGPT) 133 H Alkaline Phosphatase 569 H Total Protein 6.5 Albumin 3.3 Globulin 3.20 Albumin/Globulin Ratio 1.03 Medications Medications Current Medications Ondansetron HCl (Zofran Inj) 4 mg Q6H PRN IV NAUSEA AND/OR VOMITING; Start at 21:00 Acetaminophen (Tylenol Tab) 650 mg Q6H PRN PO PAIN LEVEL 1-3 OR FEVER; Start at 21:00 Famotidine (Pepcid) 20 mg Q12 PO Last administered on 05/20/17 09:31; Admin Dose 20 MG; Start 05/18/17 at 21:00 Lactulose (Enulose) 20 gm Q6 PO Last administered on 05/20/17 06:06; Admin Dose 20 GM; Start 05/19/17 at 06:30 Lorazepam (Ativan) 1 mg HS PO Last administered on 05/19/17 22:21; Admin Dose 1 MG; Start 05/19/17 at 22:12 LIN FLORES NP May 20, 2017 15:59
--- NOTE | 2017-05-20 16:19 | PN ---
Date/Time of Note Date/Time of Note DATE: 05/20/17 TIME: 16:18 Assessment/Plan VTE Prophylaxis VTE Prophylaxis Intervention: LMWH Lines/Catheters IV Catheter Type (from [facility] Saline Lock Urinary Cath still in place: No Assessment/Plan Chief Complaint/Hosp Course 56 yo female with former etoh disorder now 1 beer per day for past 6 months presenting with painless jaundice/hepatitis Hepatitis: - Suspect this is alcoholic hepatitis, though reports minimal etoh in past 6 months - Bilirubins improving, INR normal, this is not [facility] - MR showing only mild hepatomegaly, no iron overload - Serologies negative - Consider biopsy - Trend LFTs Hypokalemia: - Repletion as needed Pancytopenia: - 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 Macrocytic anemia Discharge to home followign liver dx Problems: Subjective 24 Hr Interval Summary Free Text/Dictation Patient feeling better Talked at length about her psychosocial situation, homeless currently Aware that further etoh is extremely life threating for her Exam/Review of Systems Vital Signs Vitals Vital Signs Date Time Temp Pulse Resp B/P Pulse Ox O2 Delivery O2 Flow Rate FiO2 05/20/17 15:22 98.5 96 20 109/69 96 05/19/17 02:00 Room Air Intake and Output 05/19/17 05/19/17 05/20/17 15:00 23:00 07:00 Intake Total 410 ml 840 ml 470 ml Output Total 5 ml Balance 410 ml 835 ml 470 ml Exam Constitutional: alert, oriented, well developed Psych: nl mood/affect, no complaints Head: atraumatic, normocephalic Eyes: EOMI, PERRL, nl conjunctiva, nl lids, nl sclera ENMT: nl external ears & nose, nl lips & teeth, nl nasal mucosa & septum Neck: non-tender, supple Respiratory: clear to auscultation, normal air movement Cardiovascular: nl pulses, regular rate and rhythm Gastrointestinal: nl liver, spleen, non-tender, soft Musculoskeletal: nl extremities to inspection, nl gait and stance Extremities: normal pulses Neurological: NECKTIE MAKER II-XII intact, nl mental status, nl speech, nl strength Skin: nl turgor, No rash or lesions Lymph: nl lymph nodes Results Result Diagram: 05/20/17 0438 05/20/17 0438 Results 24 hrs Laboratory Tests Test 05/20/17 04:38 White Blood Count 4.3 L Red Blood Count 2.86 L Hemoglobin 9.6 L Hematocrit 30.8 L Mean Corpuscular Volume 107.7 H Mean Corpuscular Hemoglobin 33.6 H Mean Corpuscular Hemoglobin Concent 31.2 L Red Cell Distribution Width 19.8 H Platelet Count 119 L Mean Platelet Volume 10.9 H Neutrophils % 53.8 Lymphocytes % 25.1 Monocytes % 17.4 H Eosinophils % 0.7 Basophils % 0.9 Nucleated Red Blood Cells % 2.3 H Neutrophils # 2.3 Lymphocytes # 1.1 Monocytes # 0.8 Eosinophils # 0.0 Basophils # 0.0 Nucleated Red Blood Cells # 0.1 H Sodium Level 140 Potassium Level 3.9 Chloride Level 104 Carbon Dioxide Level 28 Anion Gap 12 Blood Urea Nitrogen 2 L Creatinine 0.58 Glucose Level 114 Calcium Level 8.4 Total Bilirubin 5.4 #H Direct Bilirubin 3.50 #H Indirect Bilirubin 1.9 H Aspartate Amino Transf (AST/SGOT) 255 H Alanine Aminotransferase (ALT/SGPT) 133 H Alkaline Phosphatase 569 H Total Protein 6.5 Albumin 3.3 Globulin 3.20 Albumin/Globulin Ratio 1.03 Medications Medications Current Medications Ondansetron HCl (Zofran Inj) 4 mg Q6H PRN IV NAUSEA AND/OR VOMITING; Start at 21:00 Acetaminophen (Tylenol Tab) 650 mg Q6H PRN PO PAIN LEVEL 1-3 OR FEVER; Start at 21:00 Famotidine (Pepcid) 20 mg Q12 PO Last administered on 05/20/17 09:31; Admin Dose 20 MG; Start 05/18/17 at 21:00 Lactulose (Enulose) 20 gm Q6 PO Last administered on 05/20/17 06:06; Admin Dose 20 GM; Start 05/19/17 at 06:30 Lorazepam (Ativan) 1 mg HS PO Last administered on 05/19/17 22:21; Admin Dose 1 MG; Start 05/19/17 at 22:12 GEORGIANA SAHNI MD May 20, 2017 16:19
[2017-05-20 19:05] VITALS: BP 121/69; RESP 18
[2017-05-20] MEDS: LORAZEPAM 1 MG TAB PO SCH (20:55)
[2017-05-21 02:00] VITALS: BP 132/73; RESP 18
[2017-05-21 06:13] LABS: BASOPHIL # 0.1 10^3/ul (0.0-0.1); BASOPHILS % 1.1 % (0.0-2.0); EOSINOPHILS % 0.6 % (0.0-7.0); HEMATOCRIT 32.5 % (37.0-47.0); LYMPHOCYTES # 1.2 10^3/ul (0.8-2.9); LYMPHOCYTES % 25.5 % (15.0-51.0); MEAN CORPUSCULAR HEMOGLOBIN 33.3 pg (29.0-33.0); MEAN CORPUSCULAR HGB CONC 30.8 g/dl (32.0-37.0); MEAN CORPUSCULAR VOLUME 108.3 fl (82.0-101.0); MEAN PLATELET VOLUME 10.9 fl (7.4-10.4); MONOCYTE # 0.8 10^3/ul (0.3-0.9); MONOCYTES % 16.9 % (0.0-11.0); NEUTROPHIL # 2.5 10^3/ul (1.6-7.5); NEUTROPHILS % 52.5 % (39.0-77.0); NUCLEATED RED BLOOD CELLS # 0.1 10^3/ul (0.0-0.0); NUCLEATED RED BLOOD CELLS% 1.7 /100WBC (0.0-0.0); PLATELET COUNT 144 10^3/UL (140-415); RED CELL DISTRIBUTION WIDTH 20.4 % (11.5-14.5); WHITE BLOOD COUNT 4.7 10^3/ul (4.8-10.8)
[2017-05-21] MEDS: LACTULOSE 30ML CUP PO SCH ×4 (06:31→18:44)
[2017-05-21 06:51] LABS: ALBUMIN 3.5 g/dl (3.3-4.9); ALBUMIN/GLOBULIN RATIO 1.02; BILIRUBIN,DIRECT 1.5 mg/dl (0.00-0.20); BILIRUBIN,INDIRECT 1.7 mg/dl (0-1.1); BILIRUBIN,TOTAL 3.2 mg/dl (0.2-1.3); CALCIUM 8.7 mg/dl (8.4-10.2); CREATININE 0.6 mg/dl (0.44-1.00); POTASSIUM 3.5 mmol/L (3.5-5.1); TOTAL PROTEIN 6.9 g/dl (6.1-8.1)
[2017-05-21 07:48] VITALS: BP 135/82; RESP 18
[2017-05-21] MEDS: FAMOTIDINE 20 MG TAB PO SCH ×2 (08:52→20:51)
--- NOTE | 2017-05-21 11:55 | PN ---
Date/Time of Note Date/Time of Note DATE: 05/21/17 TIME: 11:51 Assessment/Plan VTE Prophylaxis VTE Prophylaxis Intervention: SCD's Lines/Catheters IV [facility]ter Type (from [facility]): Saline Lock Urinary Cath still in place: No Assessment/Plan Chief Complaint/Hosp Course Assessment: * Abnormal liver function test * Most likely alcohol induced liver disease as hepatitis serologies negative, * Alcohol abuse Plan: * Monitor liver function test periodically * Continue present management * Ativan 1 mg every 8 hours as needed for withdrawal symptoms * Abstinence critical to the patient's well-being Subjective Subjective 24 Hr Interval Summary Free Text/Dictation * Course reviewed * Patient seen and examined * Complains of some shakiness, likely EtOH withdrawal * Will add Ativan 1 mg every 8 hours as needed * GI dan the patient appears stable for outpatient management PHYSICAL EXAMINATION: GENERAL: Well developed, well nourished, alert & oriented x 3, in no acute distress SKIN: Jaundiced. No lesions, positive stigmata chronic liver disease, no evidence of bleeding diathesis LYMPHATIC: No palpable lymphadenopathy. HEAD: Normocephalic, atraumatic, no tenderness. EYES: Pupils equal reactive to light and accommodation, full extraocular movements, sclera clear, non-icteric, no discharge. EARS/NOSE AND THROAT: Ears normal, nose normal, oropharynx normal, oral membranes well hydrated without lesions. NECK: Supple, no masses, thyroid normal, JVP within normal limits, carotids normal without bruits. CHEST: Inspection within normal limits, breasts grossly normal. CARDIOVASCULAR: Heart: Regular rate and rhythm, no murmurs, gallops or rubs. Peripheral pulses present within normal limits, no cyanosis, clubbing or edemas. No pulsatile abdominal mass RESPIRATORY: Lungs clear to auscultation and percussion, no wheezing, no rubs GASTROINTESTINAL AND LIVER: Abdomen: Soft, non tenderness, non-distended, no hernias, no masses, hepatomegaly, no ascites, no guarding, no rebound tenderness , normoactive bowel sounds. Rectal: Deferred. GENITOURINARY: [Female genitalia within normal limits.] MUSCULO-SKELETAL: Gait and station within normal limits, range of motion adequate. [NEUROLOGIC: Cranial nerves II-XII intact, Motor within normal limits, Sensory within normal limits. Reflexes within normal limits. PSYCHIATRIC: Alert & oriented x 3, mood/affect/judgement adequate] Problems: Exam/Review of Systems Vital Signs Vitals Vital Signs Date Time Temp Pulse Resp B/P Pulse Ox O2 Delivery O2 Flow Rate FiO2 05/21/17 07:48 99.0 94 18 135/82 100 05/19/17 02:00 Room Air Intake and Output 05/20/17 05/20/17 05/21/17 15:00 23:00 07:00 Intake Total 1000 ml 1380 ml Balance 1000 ml 1380 ml Results Result Diagram: 05/21/17 0513 05/21/17 0513 Results 24 hrs Laboratory Tests Test 05/21/17 05:13 White Blood Count 4.7 L Red Blood Count 3.00 L Hemoglobin 10.0 L Hematocrit 32.5 L Mean Corpuscular Volume 108.3 H Mean Corpuscular Hemoglobin 33.3 H Mean Corpuscular Hemoglobin Concent 30.8 L Red Cell Distribution Width 20.4 H Platelet Count 144 # Mean Platelet Volume 10.9 H Neutrophils % 52.5 Lymphocytes % 25.5 Monocytes % 16.9 H Eosinophils % 0.6 Basophils % 1.1 Nucleated Red Blood Cells % 1.7 H Neutrophils # 2.5 Lymphocytes # 1.2 Monocytes # 0.8 Eosinophils # 0.0 Basophils # 0.1 Nucleated Red Blood Cells # 0.1 H Sodium Level 138 Potassium Level 3.5 Chloride Level 101 Carbon Dioxide Level 29 Anion Gap 12 Blood Urea Nitrogen 5 L Creatinine 0.60 Glucose Level 115 Calcium Level 8.7 Total Bilirubin 3.2 #H Direct Bilirubin 1.50 #H Indirect Bilirubin 1.7 H Aspartate Amino Transf (AST/SGOT) 164 H Alanine Aminotransferase (ALT/SGPT) 108 H Alkaline Phosphatase 487 H Total Protein 6.9 Albumin 3.5 Globulin 3.40 H Albumin/Globulin Ratio 1.02 Medications Medications Current Medications Ondansetron HCl (Zofran Inj) 4 mg Q6H PRN IV NAUSEA AND/OR VOMITING; Start at 21:00 Acetaminophen (Tylenol Tab) 650 mg Q6H PRN PO PAIN LEVEL 1-3 OR FEVER; Start at 21:00 Famotidine (Pepcid) 20 mg Q12 PO Last administered on 05/21/17t 08:52; Admin Dose 20 MG; Start 05/18/17 at 21:00 Lactulose (Enulose) 20 gm Q6 PO Last administered on 05/21/17 06:31; Admin Dose 20 GM; Start 05/19/17 at 06:30 Lorazepam (Ativan) 1 mg HS PO Last administered on 05/20/17 20:55; Admin Dose 1 MG; Start 05/19/17 at 22:12 NITHYA MELGAR MD May 21, 2017 11:55
[2017-05-21] MEDS ORDERED: LORAZEPAM 1 MG TAB PO PRN (12:00)
--- NOTE | 2017-05-21 13:39 | PN ---
Date/Time of Note Date/Time of Note DATE: 05/21/17 TIME: 13:37 Assessment/Plan VTE Prophylaxis VTE Prophylaxis Intervention: LMWH Lines/Catheters IV Catheter Type (from [facility]): Saline Lock Urinary Cath still in place: No Assessment/Plan Chief Complaint/Hosp Course 56 yo female with former etoh disorder now 1 beer per day for past 6 months presenting with painless jaundice/hepatitis Hepatitis: - Suspect this is alcoholic hepatitis, though reports minimal etoh in past 6 months, however hard to see any other cause of acute hepatitis that would follow this resolving course - Bilirubins improving, INR normal, this is not [facility] - MR showing only mild hepatomegaly, no iron overload - Serologies negative - Trend LFTs Etoh use d/o: - Advised on life dependent importance of etoh cessation Hypokalemia: - Repletion as needed Pancytopenia: - 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 Macrocytic anemia Discharge to self care tomorrow Problems: Subjective 24 Hr Interval Summary Free Text/Dictation Improving very nicely No symptoms Hopes to stay inpatient another day Exam/Review of Systems Vital Signs Vitals Vital Signs Date Time Temp Pulse Resp B/P Pulse Ox O2 Delivery O2 Flow Rate FiO2 05/21/17 07:48 99.0 94 18 135/82 100 05/19/17 02:00 Room Air Intake and Output 05/20/17 05/20/17 05/21/17 15:00 23:00 07:00 Intake Total 1000 ml 1380 ml Balance 1000 ml 1380 ml Exam Constitutional: alert, oriented, well developed Psych: nl mood/affect, no complaints Head: atraumatic, normocephalic Eyes: EOMI, PERRL, nl conjunctiva, nl lids, nl sclera ENMT: nl external ears & nose, nl lips & teeth, nl nasal mucosa & septum Neck: non-tender, supple Respiratory: clear to auscultation, normal air movement Cardiovascular: nl pulses, regular rate and rhythm Gastrointestinal: nl liver, spleen, non-tender, soft Musculoskeletal: nl extremities to inspection, nl gait and stance Extremities: normal pulses Neurological: SIEBEL ARCHITECT II-XII intact, nl mental status, nl speech, nl strength Skin: nl turgor, No rash or lesions Lymph: nl lymph nodes Results Result Diagram: 05/21/1751205/21/17512 Results 24 hrs Laboratory Tests Test 05/21/17 05:13 White Blood Count 4.7 L Red Blood Count 3.00 L Hemoglobin 10.0 L Hematocrit 32.5 L Mean Corpuscular Volume 108.3 H Mean Corpuscular Hemoglobin 33.3 H Mean Corpuscular Hemoglobin Concent 30.8 L Red Cell Distribution Width 20.4 H Platelet Count 144 # Mean Platelet Volume 10.9 H Neutrophils % 52.5 Lymphocytes % 25.5 Monocytes % 16.9 H Eosinophils % 0.6 Basophils % 1.1 Nucleated Red Blood Cells % 1.7 H Neutrophils # 2.5 Lymphocytes # 1.2 Monocytes # 0.8 Eosinophils # 0.0 Basophils # 0.1 Nucleated Red Blood Cells # 0.1 H Sodium Level 138 Potassium Level 3.5 Chloride Level 101 Carbon Dioxide Level 29 Anion Gap 12 Blood Urea Nitrogen 5 L Creatinine 0.60 Glucose Level 115 Calcium Level 8.7 Total Bilirubin 3.2 #H Direct Bilirubin 1.50 #H Indirect Bilirubin 1.7 H Aspartate Amino Transf (AST/SGOT) 164 H Alanine Aminotransferase (ALT/SGPT) 108 H Alkaline Phosphatase 487 H Total Protein 6.9 Albumin 3.5 Globulin 3.40 H Albumin/Globulin Ratio 1.02 Medications Medications Current Medications Ondansetron HCl (Zofran Inj) 4 mg Q6H PRN IV NAUSEA AND/OR VOMITING; Start at 21:00 Acetaminophen (Tylenol Tab) 650 mg Q6H PRN PO PAIN LEVEL 1-3 OR FEVER; Start at 21:00 Famotidine (Pepcid) 20 mg Q12 PO Last administered on 05/21/17 08:52; Admin Dose 20 MG; Start 05/18/17 at 21:00 Lactulose (Enulose) 20 gm Q6 PO Last administered on 05/21/17 12:47; Admin Dose 20 GM; Start 05/19/17 at 06:30 Lorazepam (Ativan) 1 mg HS PO Last administered on 05/20/17 20:55; Admin Dose 1 MG; Start 05/19/17 at 22:12 Lorazepam (Ativan) 1 mg Q8H PRN PO ANXIETY Last administered on 05/21/17 12:47 ; Admin Dose 1 MG; Start 05/21/17 at 12:00 GEORGIANA SAHNI MD May 21, 2017 13:39
[2017-05-21 14:04] VITALS: BP 116/80; RESP 15
[2017-05-21 19:05] VITALS: BP 113/65; RESP 18
[2017-05-21] MEDS: LORAZEPAM 1 MG TAB PO SCH (20:52)
[2017-05-21 22:47] LABS: ADD UMIC YES; UR ASCORBIC ACID NEGATIVE (NEGATIVE); UR BACTERIA FEW /HPF (NONE SEEN); UR BILIRUBIN (Dip) NEGATIVE (NEGATIVE); UR BLOOD (Dip) NEGATIVE (NEGATIVE); UR CLARITY CLEAR (CLEAR); UR COLOR YELLOW (YELLOW); UR GLUCOSE (Dip) NEGATIVE (NEGATIVE); UR KETONES (Dip) NEGATIVE (NEGATIVE); UR LEUKOCYTE ESTERASE (Dip) TRACE Leu/ul (NEGATIVE); UR NITRITE (Dip) NEGATIVE (NEGATIVE); UR RBC 0 /HPF (0-5); UR SPECIFIC GRAVITY (Dip) 1.002 (1.003-1.030); UR TOTAL PROTEIN (Dip) NEGATIVE (NEGATIVE); UR UROBILINOGEN (Dip) NEGATIVE (NEGATIVE)
[2017-05-21 23:09] LABS: BARBITURATES Negative (NEGATIVE); BENZODIAZEPINES Negative (NEGATIVE); CANNABINOIDS Negative (NEGATIVE); COCAINE Negative (NEGATIVE); OPIATES Negative (NEGATIVE)
[2017-05-22 02:00] VITALS: BP 127/77; RESP 18
[2017-05-22 05:25] LABS: BASOPHILS % 0.8 % (0.0-2.0); EOSINOPHILS % 0.8 % (0.0-7.0); HEMATOCRIT 30.7 % (37.0-47.0); HEMOGLOBIN 9.4 g/dl (12.0-16.0); LYMPHOCYTES # 1.5 10^3/ul (0.8-2.9); LYMPHOCYTES % 30.5 % (15.0-51.0); MEAN CORPUSCULAR HEMOGLOBIN 33.6 pg (29.0-33.0); MEAN CORPUSCULAR HGB CONC 30.6 g/dl (32.0-37.0); MEAN CORPUSCULAR VOLUME 109.6 fl (82.0-101.0); MEAN PLATELET VOLUME 11.3 fl (7.4-10.4); MONOCYTE # 1.1 10^3/ul (0.3-0.9); MONOCYTES % 21.8 % (0.0-11.0); NEUTROPHIL # 2.2 10^3/ul (1.6-7.5); NEUTROPHILS % 43.1 % (39.0-77.0); NUCLEATED RED BLOOD CELLS # 0.1 10^3/ul (0.0-0.0); NUCLEATED RED BLOOD CELLS% 1.2 /100WBC (0.0-0.0); PLATELET COUNT 148 10^3/UL (140-415); RED CELL DISTRIBUTION WIDTH 21.3 % (11.5-14.5)
[2017-05-22 05:47] LABS: ALBUMIN 3.4 g/dl (3.3-4.9); ALBUMIN/GLOBULIN RATIO 1.03; BILIRUBIN,DIRECT 0.2 mg/dl (0.00-0.20); BILIRUBIN,INDIRECT 1.4 mg/dl (0-1.1); BILIRUBIN,TOTAL 1.6 mg/dl (0.2-1.3); CALCIUM 8.2 mg/dl (8.4-10.2); CREATININE 0.67 mg/dl (0.44-1.00); POTASSIUM 3.7 mmol/L (3.5-5.1); TOTAL PROTEIN 6.7 g/dl (6.1-8.1)
[2017-05-22] MEDS: LACTULOSE 30ML CUP PO SCH ×4 (05:47→18:00)
[2017-05-22 08:17] VITALS: BP 110/74; RESP 16
[2017-05-22] MEDS: FAMOTIDINE 20 MG TAB PO SCH (08:42)
--- NOTE | 2017-05-22 10:04 | PDOCDIS ---
Discharge Instructions DIAGNOSIS Discharge Diagnosis Alcohol hepatitis CONDITION Patient Condition: Fair HOME CARE INSTRUCTIONS: Diet Instructions: Low Fat /Cholesterol ACTIVITY: Activity Restrictions: Slowly Increase Activity Rest between Activity Avoid heavy lifting Bathing Restrictions: Shower FOLLOW UP/APPOINTMENTS Follow-up Plan Follow up with your primary care doctor within the next 1-2 weeks It is EXTREMELY important that you do not drink any alcohol. You have damage to your liver that is reversible at this point, but if you continue to drink any alcohol your liver will likely suffer irreparable damage. Your life depends on you not drinking any alcohol again. If you have any cravings please come to the hospital. Enrolling in a program like AA may also be helpful. GEORGIANA SAHNI MD May 22, 2017 10:04
--- NOTE | 2017-05-22 10:08 | DS ---
Date/Time of Note Date/Time of Note DATE: 05/22/17 TIME: 10:04 Discharge Summary Admission/Discharge Info Admit Date/Time May 18, 2017 at 20:00 Discharge Date/Time Discharge Diagnosis Alcohol hepatitis Patient Condition: Fair Hx of Present Illness Chief complaint: Yellow all over This is a 56-year-old female was sent from the clinic for acute onset jaundice and icterus that has only been going on for supposedly a few days. Patient states that she noticed yesterday her eyes turning yellow and then today her skin was yellow. She reports that she was a heavy drinker 6 months ago however now only drinks about 1 beer a day. She reports that 3 months ago she had her LFTs checked and they were all normal. Patient denies any fevers. Denies any nausea or vomiting. She does reports that she lives in her van as she is homeless and in the daytime sugars a house with multiple people. She does state that she has a back wound secondary to her sleeping on her van. Denies any history of cirrhosis. Allergies: NKDA Medications: None Hospital Course 56 yo female with former etoh disorder now 1 beer per day for past 6 months presenting with painless jaundice/hepatitis The patient was found to have elevated bilirubins to 13/11 on admission with a transaminitis in 2:1 ratio. INR was normal. She underwent US and MRCP. These showed hepatomegaly. Her hepatitis viral serologies were negative, she is immune to Hepatitis B. Her bilirubins trended down each day to normal at discharge. She showed no signs of encephelopathy at all. She had no RUQ pain. She was treated for anxiety with low dose benzodiazepines. She was extensively counseled on the life-dependent importance of alcohol cessation She will follow up in the coming week with her primary care provider for further care of alcohol hepatitis and alcohol use disorder Home Meds No Active Prescriptions or Reported Meds Follow-up Plan Follow up with your primary care doctor within the next 1-2 weeks It is EXTREMELY important that you do not drink any alcohol. You have damage to your liver that is reversible at this point, but if you continue to drink any alcohol your liver will likely suffer irreparable damage. Your life depends on you not drinking any alcohol again. If you have any cravings please come to the hospital. Enrolling in a program like AA may also be helpful. Primary Care Provider Care Physician No Primary Time spent on discharge: > 30 minutes Pending Labs Laboratory Tests Test 05/21/17 16:45 05/22/17 04:44 Urine Color YELLOW (YELLOW) Urine Clarity CLEAR (CLEAR) Urine pH 8.0 (5.0-9.0) Urine Specific [place] 1.002 (1.003-1.030) Urine Ketones NEGATIVEmg/dL (NEGATIVE) Urine Nitrite NEGATIVEmg/dL (NEGATIVE) Urine Bilirubin NEGATIVEmg/dL (NEGATIVE) Urine Urobilinogen NEGATIVEmg/dL (NEGATIVE) Urine Leukocyte Esterase TRACELeu/ul (NEGATIVE) Urine Microscopic RBC 0/HPF (0-5) Urine Microscopic WBC 2/HPF (0-5) Urine Bacteria FEW/HPF (NONE SEEN) Urine Hemoglobin NEGATIVEmg/dL (NEGATIVE) Urine Glucose NEGATIVEmg/dL (NEGATIVE) Urine Total Protein NEGATIVEmg/dl (NEGATIVE) Urine Opiates Screen Negative (NEGATIVE) Urine Barbiturates Negative (NEGATIVE) Urine Amphetamines Screen Negative (NEGATIVE) Urine Benzodiazepines Screen Negative (NEGATIVE) Urine Cocaine Screen Negative (NEGATIVE) Urine Cannabinoids Negative (NEGATIVE) White Blood Count 5.010^3/ul (4.8-10.8) Red Blood Count 2.8010^6/ul (4.20-5.40) Hemoglobin 9.4g/dl (12.0-16.0) Hematocrit 30.7% (37.0-47.0) Mean Corpuscular Volume 109.6fl (82.0-101.0) Mean Corpuscular Hemoglobin 33.6pg (29.0-33.0) Mean Corpuscular Hemoglobin Concent 30.6g/dl (32.0-37.0) Red Cell Distribution Width 21.3% (11.5-14.5) Platelet Count 25276^3/UL (140-415) Mean Platelet Volume 11.3fl (7.4-10.4) Neutrophils % 43.1% (39.0-77.0) Lymphocytes % 30.5% (15.0-51.0) Monocytes % 21.8% (0.0-11.0) Eosinophils % 0.8% (0.0-7.0) Basophils % 0.8% (0.0-2.0) Nucleated Red Blood Cells % 1.2/100WBC (0.0-0.0) Neutrophils # 2.210^3/ul (1.6-7.5) Lymphocytes # 1.510^3/ul (0.8-2.9) Monocytes # 1.110^3/ul (0.3-0.9) Eosinophils # 0.010^3/ul (0.0-0.5) Basophils # 0.010^3/ul (0.0-0.1) Nucleated Red Blood Cells # 0.110^3/ul (0.0-0.0) Sodium Level 139mmol/L (135-144) Potassium Level 3.7mmol/L (3.5-5.1) Chloride Level 102mmol/L (97-110) Carbon Dioxide Level 28mmol/L (21-31) Anion Gap 13 (8-16) Blood Urea Nitrogen 6mg/dl (7-20) Creatinine 0.67mg/dl (0.44-1.00) Glucose Level 115mg/dl (70-220) Calcium Level 8.2mg/dl (8.4-10.2) Total Bilirubin 1.6mg/dl (0.2-1.3) Direct Bilirubin 0.20mg/dl (0.00-0.20) Indirect Bilirubin 1.4mg/dl (0-1.1) Aspartate Amino Transf (AST/SGOT) 120IU/L (15-46) Alanine Aminotransferase (ALT/SGPT) 84IU/L (13-69) Alkaline Phosphatase 403IU/L (42-121) Total Protein 6.7g/dl (6.1-8.1) Albumin 3.4g/dl (3.3-4.9) Globulin 3.30g/dl (1.3-3.2) Albumin/Globulin Ratio 1.03 GEORGIANA SAHNI MD May 22, 2017 10:08
[2017-05-22 14:00] VITALS: BP 107/58; RESP 16
== END 2017-05-22 19:30 | disposition home or self-care (01) | DRG 432 ==
LOC: FTE 16:21 → MS1 20:00
PROVIDERS: ADMIT Family Medicine; ATTEND Family Medicine
DX: K70.10 Alcoholic hepatitis without ascites (principal); K72.00 Acute and subacute hepatic failure without coma; D61.818 Other pancytopenia; F10.10 Alcohol abuse, uncomplicated; Z59.0 Homelessness
CPT/HCPCS: 36415; 74181; 76705; 80053; 80061; 80306; 80307; 82103; 82140; 82390; 82607; 82728; 82746; 83036; 83540; 83615; 83690; 83735; 83921; 84100; 84436; 84443; 84479; 85025; 85045; 85610; 85730; 86021; 86038; 86376; 86692; 86703; 86704; 86706; 86708; 86709; 86803; 87340; 96360; 96361; J2060; J3480; J7030

== ENCOUNTER 2017-07-13 19:40 | Emergency (ER) | payer MEDICARE ==
[~2017-07-13] VITALS: Ht 172.7 cm; Wt 70.0 kg
[2017-07-13 19:59] VITALS: Ht 172.7 cm; Wt 70.0 kg
--- NOTE | 2017-07-14 00:22 | ERD ---
ER Documentation Chief Complaint Chief Complaint Abd pain x 1 day, s/p drinking HPI The patient is a 56-year-old female, presenting to the ER because of abdominal pain intermittently for 1 day. She has similar symptoms previously. She has been drinking, her last alcoholic beverage was this morning. She feel anxious and wants medication, denies fever, headache, syncope, near syncope, seizure, neck pain, chest pain. Her abdominal pain is diffuse, she denies nausea, vomiting, dysuria, diarrhea. She is drinks regularly, denies smoking or using illicit drug Past Medical history: Alcoholic hepatitis, hepatic steatosis, anxiety, insomnia Past surgical history: Small bowel obstruction ROS All systems reviewed and are negative except as per history of present illness. Medications Home Meds Active Scripts Sulfamethoxazole/Trimethoprim* (Bactrim Ds* Tablet) 1 Each Tablet, 1 TAB PO BID , #14 TAB Prov:CODY PATEL MD 07/14/17 Allergies Allergies: Coded Allergies: No Known Drug Allergies (Verified Allergy, Unknown, 12/18/13) PMhx/Soc History of Surgery: Yes (ovarian cyst removal decades ago) Anesthesia Reaction: No Hx Neurological Disorder: No Hx Respiratory Disorders: No Hx Cardiac Disorders: No Hx Psychiatric Problems: No Hx Miscellaneous Medical Probl: No Hx Alcohol Use: Yes (1 bottle of beer per day) Hx Substance Use: No Hx Tobacco Use: No Physical Exam Vitals Vital Signs Date Time Temp Pulse Resp B/P Pulse Ox O2 Delivery O2 Flow Rate FiO2 07/14/17 00:20 99.1 102 13 140/94 99 Room Air 07/13/17 19:59 99.1 128 20 114/70 99 Physical Exam Const: No acute distress. Head: Atraumatic. Eyes: Normal Conjunctiva. ENT: Normal External Ears, Nose and Mouth. Neck: Full range of motion. No meningismus. Resp: Clear to auscultation bilaterally. Cardio: Regular tachycardic Abd: Soft, non distended, normal bowel sounds, vague and diffuse mild tenderness, no rigidity, rebound, CVA tenderness Skin: No petechiae or rashes. Back: No midline or flank tenderness. Ext: No cyanosis, or edema. Neur: Awake and alert. No focal deficit Psych: Normal Mood and Affect. Result Diagram: 07/14/17 0130 07/14/17 013 Results 24 hrs Laboratory Tests Test 07/14/17 01:30 07/14/17 02:33 White Blood Count 5.510^3/ul Red Blood Count 3.9410^6/ul Hemoglobin 12.1g/dl Hematocrit 35.0% Mean Corpuscular Volume 88.8fl Mean Corpuscular Hemoglobin 30.7pg Mean Corpuscular Hemoglobin Concent 34.6g/dl Red Cell Distribution Width 15.1% Platelet Count 19635^3/UL Mean Platelet Volume 9.5fl Neutrophils % 48.4% Lymphocytes % 43.4% Monocytes % 6.4% Eosinophils % 1.3% Basophils % 0.5% Nucleated Red Blood Cells % 0.0/100WBC Neutrophils # 2.610^3/ul Lymphocytes # 2.410^3/ul Monocytes # 0.410^3/ul Eosinophils # 0.110^3/ul Basophils # 0.010^3/ul Nucleated Red Blood Cells # 0.010^3/ul Prothrombin Time 13.3Sec Prothrombin Time Ratio 1.0 INR International Normalized Ratio 1.01 Activated Partial Thromboplast Time 25.5Sec Sodium Level 146mmol/L Potassium Level 3.5mmol/L Chloride Level 103mmol/L Carbon Dioxide Level 24mmol/L Anion Gap 23 Blood Urea Nitrogen 9mg/dl Creatinine 0.67mg/dl Glucose Level 83mg/dl Calcium Level 9.0mg/dl Total Bilirubin 0.3mg/dl Direct Bilirubin 0.00mg/dl Indirect Bilirubin 0.3mg/dl Aspartate Amino Transf (AST/SGOT) 57IU/L Alanine Aminotransferase (ALT/SGPT) 30IU/L Alkaline Phosphatase 94IU/L Total Protein 7.4g/dl Albumin 4.6g/dl Globulin 2.80g/dl Albumin/Globulin Ratio 1.64 Lipase 120U/L Ethyl Alcohol Level 285.0mg/dl Bedside Urine pH (LAB) 5.5 Bedside Urine Protein (LAB) Negative Bedside Urine Glucose (UA) Negative Bedside Urine Ketones (LAB) Negative Bedside Urine Blood Negative Bedside Urine Nitrite (LAB) Negative Bedside Urine Leukocyte Esterase (L 2+ Current Medications Medications (Trade) Dose Ordered Sig/Felciia Route PRN Reason Start Time Stop Time Status Last Admin Dose Admin Lorazepam (Ativan) 1 mg ONCE ONCE IV 07/14/17 00:30 07/14/17 00:31 DC 07/14/17 01:44 Sodium Chloride (NS) 2,170 ml BOLUS OVER 2 HOURS STAT IV* 07/14/17 00:30 07/14/17 00:32 DC 07/14/17 01:46 Procedures/MDM [place] [id number] Radiology Main Line: [phone] DIAGNOSTIC IMAGING REPORT Patient: JONI CONTRERAS : 1960 Age: 56 Sex: F MR #: [id number] DOS: 07/14/17 0028 Ordering MD: CODY PATEL MD Location: E/R Room/Bed: PROCEDURE: CT abdomen and pelvis without intravenous contrast. CLINICAL INDICATION: Abdominal pain. TECHNIQUE: CT of the abdomen/pelvis was performed utilizing axial images with reconstructions in sagittal and coronal planes. The administered radiation dose is CTDI 7.2 mGy, DLP 443 mGy-cm. One or more of the following dose reduction techniques were used: automated exposure control, adjustment of the mA and/or kV according to patient size and/or use of iterative reconstruction technique. DICOM images are available. COMPARISON: 08/10/2013 FINDINGS: Visualized Chest: The visualized lung bases are clear. Abdomen: The spleen, pancreas, gallbladder,and adrenal glands are unremarkable. The liver is markedly, diffusely decreased in attenuation, compatible with hepatic steatosis. The kidneys are without hydronephrosis. No definite urinary calculi are seen. There is no evidence of bowel obstruction. The appendix is not seen. There is no evidence of acute appendicitis. No intra-abdominal free air is seen. There is no evidence of intra-abdominal adenopathy or free fluid. Pelvis: There is no evidence of pelvic adenopathy. The uterus and ovaries are without enlargement. The urinary bladder is unremarkable. There is no pelvic free fluid. Osseous structures: Unremarkable. IMPRESSION: No acute findings. Hepatic steatosis. RPTAT: HIKT .Rene Hoover MD, Date Time Electronically viewed and signed by .Rene Hoover MD, on 07/14/2017 02:32 .T/ CC: CODY PATEL MD MEDICAL MAKING DECISION: The patient is a 56-year-old female, presenting with acute abdominal pain of unclear etiology, acute cystitis, acute dehydration, alcohol abuse. She was treated with normosaline 30 mL/kg IV acute dehydration, Ativan 1 mg IV alcohol abuse with good response. She is stable for outpatient follow-up The differential diagnoses considered include but are not limited to acute pancreatitis, cholelithiasis, cholecystitis, cystitis, pancreatitis, hepatitis, gastritis, peptic ulcer disease, gastric ulcer, appendicitis, diverticulitis, cholangitis, choledocholithiasis, partial small bowel obstruction. Departure Diagnosis: Primary Impression: Abdominal pain Additional Impressions: UTI (urinary tract infection) Dehydration Alcohol abuse Condition: Good Comments She was discharged with Bactrim DS I discussed the findings with the patient. I advised the patient to follow-up with the primary physician in about 1-2 days, sooner if needed and return if any concern. Disclaimer: Inadvertent spelling and grammatical errors are likely due to EHR/ dictation software use and do not reflect on the overall quality of patient care. Also, please note that the electronic time recorded on this note does not necessarily reflect the actual time of the patient encounter. CODY PATEL MD Jul 14, 2017 00:22
[2017-07-14] MEDS ORDERED: SODIUM CHLORIDE 0.9% 1L BAG IV* STA (00:30)
[2017-07-14] MEDS ORDERED: LORAZEPAM 2 MG INJ IV ONE (00:30)
[2017-07-14 02:22] LABS: BASOPHILS % 0.5 % (0.0-2.0); EOSINOPHILS # 0.1 10^3/ul (0.0-0.5); EOSINOPHILS % 1.3 % (0.0-7.0); HEMOGLOBIN 12.1 g/dl (12.0-16.0); LYMPHOCYTES # 2.4 10^3/ul (0.8-2.9); LYMPHOCYTES % 43.4 % (15.0-51.0); MEAN CORPUSCULAR HEMOGLOBIN 30.7 pg (29.0-33.0); MEAN CORPUSCULAR HGB CONC 34.6 g/dl (32.0-37.0); MEAN CORPUSCULAR VOLUME 88.8 fl (82.0-101.0); MEAN PLATELET VOLUME 9.5 fl (7.4-10.4); MONOCYTE # 0.4 10^3/ul (0.3-0.9); MONOCYTES % 6.4 % (0.0-11.0); NEUTROPHIL # 2.6 10^3/ul (1.6-7.5); NEUTROPHILS % 48.4 % (39.0-77.0); PLATELET COUNT 117 10^3/UL (140-415); RED BLOOD COUNT 3.94 10^6/ul (4.20-5.40); RED CELL DISTRIBUTION WIDTH 15.1 % (11.5-14.5); WHITE BLOOD COUNT 5.5 10^3/ul (4.8-10.8)
[2017-07-14 02:25] LABS: INR 1.01; PARTIAL THROMBOPLASTIN TIME 25.5 Sec (25.0-35.0); PROTIME 13.3 Sec (12.2-14.2)
[2017-07-14 02:27] LABS: ALBUMIN 4.6 g/dl (3.3-4.9); ALBUMIN/GLOBULIN RATIO 1.64; BILIRUBIN,INDIRECT 0.3 mg/dl (0-1.1); BILIRUBIN,TOTAL 0.3 mg/dl (0.2-1.3); CREATININE 0.67 mg/dl (0.44-1.00); POTASSIUM 3.5 mmol/L (3.5-5.1); TOTAL PROTEIN 7.4 g/dl (6.1-8.1)
--- NOTE | 2017-07-14 02:32 | RADRPT ---
PROCEDURE: CT abdomen and pelvis without intravenous contrast. CLINICAL INDICATION: Abdominal pain. TECHNIQUE: CT of the abdomen/pelvis was performed utilizing axial images with reconstructions in s agittal and coronal planes. The administered radiation dose is CTDI 7.2 mGy, DLP 443 mGy-cm. One or more of the following dose reduction techniques were used: automated exposure control, adjustment of the mA and/or kV according to patient size and/or use of iterative reconstruction technique. DICOM images are available. COMPARISON: 08/10/2013 FINDINGS: Visualized Chest: The visualized lung bases are clear. Abdomen: The spleen, pancreas, gallbladder,and adrenal glands are unremarkable. The liver is markedly, dif fusely decreased in attenuation, compatible with hepatic steatosis. The kidneys are without hydronephrosis. No definite urinary calculi are seen. There is no evidence of bowel obstruction. The appendix is not seen. There is no evidence of acute appendicitis. No intra-abdominal free air is seen. There is no evidence of intra-abdominal adenopathy or free fluid. Pelvis: There is no evidence of pelvic adenopathy. The uterus and ovaries are without enlargement. The uri nary bladder is unremarkable. There is no pelvic free fluid. Osseous structures: Unremarkable. IMPRESSION: No acute findings. Hepatic steatosis. RPTAT: HIKT .Rene Hoover MD, MD Date Time Electronically viewed and signed by .Rene Hoover MD, on 07/14/2017 02:32 .T/
[2017-07-14 02:35] LABS: URINE BLOOD (Dip) POC Negative (NEGATIVE)
[2017-07-14] MEDS ORDERED: SULF1TAB31 PO (02:49)
[2017-07-14 02:50] VITALS: BP 117/67; PULSE 96; RESP 16; TEMP 98.1
== END 2017-07-14 04:06 | disposition home or self-care (01) ==
LOC: E/R 19:40
DX: N39.0 Urinary tract infection, site not specified (principal); R40.2252 Coma scale, best verbal response, oriented, at arrival to emergency department; E86.0 Dehydration; F10.10 Alcohol abuse, uncomplicated; R40.2142 Coma scale, eyes open, spontaneous, at arrival to emergency department; R40.2362 Coma scale, best motor response, obeys commands, at arrival to emergency department
CPT/HCPCS: 36415; 74176; 80053; 80306; 81003; 83690; 85025; 85610; 85730; 96374; 99285; J2060; J7030

== ENCOUNTER 2017-12-13 17:07 | Emergency (ER) | END 2017-12-14 12:15 | disposition home or self-care (01) ==

== ENCOUNTER 2018-04-01 16:24 | Emergency (ER) | END 2018-04-01 21:04 | disposition home or self-care (01) ==

== ENCOUNTER 2018-04-02 00:14 | Emergency (ER) | END 2018-04-02 09:13 | disposition home or self-care (01) ==

== ENCOUNTER 2018-04-02 10:23 | Emergency (ER) | END 2018-04-02 14:50 | disposition home or self-care (01) ==

== ENCOUNTER 2018-11-13 09:10 | Day surgery (SDC) | payer MEDICARE, OTHER ==
[~2018-11-13] VITALS: Ht 170.2 cm; Wt 68.2 kg
[~2018-11-13 09:10] MED LIST: QUET50TA PO; ZOF8 PO
[2018-11-13] MEDS ORDERED: MIRT30TA PO (09:54)
[2018-11-13] MEDS ORDERED: FOLI-49 PO (09:55)
[2018-11-13] MEDS ORDERED: CALC500T91 PO (09:56)
[2018-11-13 10:43] VITALS: BP 123/78; PULSE 80; RESP 16; Ht 170.2 cm; Wt 68.2 kg
[2018-11-13] MEDS ORDERED: ROPIVACAINE 0.5 % 30 ML VIAL ONE (11:59)
[2018-11-13] MEDS ORDERED: CEFAZOLIN 2 GM/50 ML (PMX) 50 ML IVPB ONE (12:00)
[2018-11-13] MEDS ORDERED: SOD CHLORIDE 0.9% 1,000 ML IV ONE (12:00)
[2018-11-13] MEDS ORDERED: LIDOCAINE 2% (MDV) 20 ML INJ ONE (12:20)
[2018-11-13] MEDS ORDERED: BUPIVACAINE 0.5% (SDV) 30 ML INJ ONE (12:20)
--- NOTE | 2018-11-13 12:27 | PREAC ---
Date/Time of Note Date/Time of Note DATE: 11/13/18 TIME: 12:26 Anesthesia Eval and Record Evaluation Time Pre-Procedure Interview DATE: 11/13/18 TIME: 12:26 Age 58 Sex female NPO: 8 hrs Preoperative diagnosis abdominal mass Planned procedure resection of BD MASS Past Medical History Past Medical History: None Surgery & Anesthesia Issues No known issue Meds Anticoagulation: No Beta Sagar within 24 hr: No Reason Beta Sagar not given: Pt. not on B-Sagar Reported Medications Calcium Carbonate ([id number]) 500 Mg Tablet, 500 MG PO DAILY, TAB 11/13/18 Folic Acid* (Folic Acid*) 1 Mg Tablet, 1 MG PO DAILY, TAB 11/13/18 Mirtazapine* (Remeron*) 30 Mg Tablet, 30 MG PO HS, TAB 11/13/18 Discontinued Reported Medications Quetiapine Fumarate* (Seroquel*) 50 Mg Tablet, 50 MG PO HS, TAB 04/02/18 Discontinued Scripts Ondansetron Hcl* (Zofran*) 8 Mg Tab, 8 MG PO Q6H PRN for NAUSEA AND OR VOMITING, #20 TAB Prov:CHRIS LOPEZ MD 04/02/18 Current Medications Cefazolin Sodium/ Dextrose 50 ml @ 100 mls/hr PRE-OP ONCE IVPB ; Start 11/13/18 at 12:00; Stop 11/13/18 at 12:29 Sodium Chloride 1,000 ml @ 75 mls/hr [id number] ONCE IV ; Start 11/13/18 at 12:00; Stop 11/14/18 at 01:19 Meds reviewed: Yes Allergies Coded Allergies: No Known Drug Allergies (Verified Allergy, Unknown, 11/13/18) Allergies Reviewed: Yes Labs/Studies Labs Reviewed: Reviewed by anesthesiologist Result Diagram: 11/13/18 1015 11/13/18 1015 Laboratory Tests 11/13/18 10:15 test: N/A Studies: ECG (SR), CXR (NL) Pre-procedure Exam Last vitals Vital Signs Date Temp Pulse Resp B/P (MAP) Pulse Ox O2 O2 Flow FiO2 Time Delivery Rate 11/13/18 97.8 80 16 123/78 100 Room Air 10:43 (93) Airway: Adequate mouth opening Mallampati: Mallampati I Teeth: Normal Lung: Normal Heart: Normal ASA Physical Status ASA physical status: 2 Emergency: None Planned Anesthetic General/MAC: MAC, TIVA Planned Pain Management Parenteral pain med Pre-operative Attestations Prior to commencing anesthesia and surgery, the patient was re-evaluated, there was verification of: *The patient's identity *The results of appropriate recent lab work and preoperative vital signs *The above evaluation not changing prior to induction *Anesthetic plan, risk benefits, alternative and complications discussed with patient/family; questions answered; patient/family understands, accepts and wishes to proceed. ROSALIE JROGENSEN MD Nov 13, 2018 12:27
[2018-11-13] MEDS ORDERED: MEPERIDINE 25 MG INJ IV PRN (12:30)
[2018-11-13] MEDS ORDERED: DIPHENHYDRAMINE 50 MG INJ IV PRN (12:30)
[2018-11-13] MEDS ORDERED: ONDANSETRON 4 MG INJ IV PRN (12:30)
[2018-11-13] MEDS ORDERED: HYDROmorphONE 1 MG/5 ML IV SYRINGE IV PRN ×3 (12:30)
[2018-11-13] MEDS ORDERED: OXYCODONE/ACETAMINOPHEN (5/325) TAB PO PRN ×2 (12:30)
[2018-11-13] MEDS ORDERED: KETOROLAC 30 MG INJ IV PRN (12:30)
[2018-11-13] MEDS ORDERED: FENTAnyl 50 MCG/ML VIAL ONE (12:32)
[2018-11-13] MEDS ORDERED: PROPOFOL 20 ML ONE (12:32)
[2018-11-13] MEDS ORDERED: CEFAZOLIN 1 GM INJ ONE (12:34)
[2018-11-13 12:56] VITALS: BP 106/68; PULSE 74; RESP 18
[2018-11-13] MEDS ORDERED: HYDROCODONE/APAP (5/325) TAB PO ONE (13:00)
--- NOTE | 2018-11-13 13:00 | OPR ---
Date/Time of Note Date/Time of Note DATE: 11/13/18 TIME: 12:58 Operative Report Procedure Date: Nov 13, 2018 Preoperative Diagnosis abdominal mass Postoperative Diagnosis same Operation/Procedure Performed 1. excision of abdominal mass 3 cm mass 3 cm incision 2. localized adjacent tissue transfer with the use of skin flaps 6 sq cm defect of abdomen 3. therapeutic injection of subcutaneous local anesthesia Surgeon see signature line [employer] Worker none Anesthesia Type: general Estimated Blood Loss: 0 - 10 ml's Transfusion none Specimen abdominal mass Grafts/Implants none Complications none Pt Condition Post Procedure: stable Indications This is a 58-year-old female with an abdominal mass that symptomatic and painful. She required surgical excision. Risks alternatives benefits and percent were discussed with the patient. Patient expressed understanding and consents to the operation. Procedure Description Patient is taken to the OR and prepped and draped in usual sterile fashion. Surgical time was performed. IV antibiotics were given. Therapeutic subcutaneous local anesthesia was infiltrated along the incision site and around the mass. Using a 15 blade elliptical incision is made around the mass. Dissection with cautery was carried onto the mass and the mass was circu mferentially excised. Good hemostasis established. Due to tissue defect localized adjacent to his transfer with use of skin flaps was performed. Multilayer closure with interrupted 0 Vicryl. Skin was then closed with skin maurice. Hemostasis was insured and dry dressings were applied. Roni CURIEL Nov 13, 2018 13:00
[2018-11-13 13:01] VITALS: BP 115/72; PULSE 72; RESP 14
[2018-11-13 13:06] VITALS: BP 119/72; PULSE 72; RESP 31
[2018-11-13 13:11] VITALS: BP 119/74; PULSE 74; RESP 23
[2018-11-13 13:39] VITALS: BP 129/88; PULSE 74; RESP 16
--- NOTE | 2018-11-13 14:29 | RADRPT ---
Vent Rate: 80 bpm RR Interval: 0 msec AR Interval: 170 msec QRS Duration: 90 msec QT Interval: 408 msec QTC Interval: 470 msec P-R-T [place]: 37 - 68 - 67 degrees Normal sinus rhythm Normal ECG Electronically Signed By: Martín Fulton
--- NOTE | 2018-11-13 16:00 | PAC ---
Date/Time of Note Date/Time of Note DATE: 11/13/18 TIME: 16:00 Post-Anesthesia Notes Post-Anesthesia Note Last documented vital signs Vital Signs Date Temp Pulse Resp B/P (MAP) Pulse Ox O2 O2 Flow FiO2 Time Delivery Rate 11/13/18 98.1 74 16 129/88 99 13:39 (102) 11/13/18 Room Air 13:11 Activity: WNL Respiratory function: WNL Cardiovascular function: WNL Mental status: Baseline Pain reasonably controlled: Yes Hydration appropriate: Yes Nausea/Vomiting absent: No ROSALIE JORGENSEN MD Nov 13, 2018 16:00
== END 2018-11-13 14:06 | disposition home or self-care (01) ==
LOC: SDS 09:10
PROVIDERS: ATTEND Surgery
DX: D23.5 Other benign neoplasm of skin of trunk (principal)
CPT/HCPCS: 14000; 71045; 80053; 85025; 85610; 85730; 88307; 93005; J2405; J3010; J0690; J2795

== ENCOUNTER 2018-12-15 16:28 | Emergency (ER) | payer MEDICARE, OTHER ==
[~2018-12-15] VITALS: Wt 81.0 kg
[~2018-12-15 16:28] MED LIST changes: +CALC500T91 PO; +FOLI-49 PO; +MIRT30TA PO; -QUET50TA PO; -ZOF8 PO
[2018-12-15] MEDS ORDERED: ONDANSETRON 4 MG INJ IV STA (17:52)
[2018-12-15] MEDS ORDERED: KETOROLAC 30 MG INJ IV STA (17:52)
[2018-12-15] MEDS ORDERED: PANTOPRAZOLE 40 MG INJ IV ONE (19:30)
[2018-12-15] MEDS ORDERED: ONDA4TAB14 PO (20:08)
[2018-12-15] MEDS ORDERED: PANT40TA3 PO (20:08)
--- NOTE | 2018-12-15 20:12 | ERD ---
ER Documentation Chief Complaint Chief Complaint ABD PAIN X 2 DAYS WITH N/V HPI Patient is a 58-year-old female with insomnia who presents with abdominal pain. The patient has abdominal pain, nausea, vomiting, and headache. She said the pain started 1 week ago but was worse last night. She tried Zofran and Zantac. She has no fevers. She has concerned because she had a 14 pound weight gain over the past few months. She saw her primary doctor on December 06. She says this feels like previous bowel obstruction. Upon review of old medical records the patient has multiple visits to the ER for various complaints. Review of the emergency department information exchange system shows visits to 2 separate emergency departments. She said her primary doctor is Dr. Ruddy Sierra. ROS All systems reviewed and are negative except as per history of present illness. Medications Home Meds Active Scripts Ondansetron (Ondansetron Odt) 4 Mg Tab.rapdis, 4 MG PO Q6H PRN for NAUSEA AND/OR VOMITING, #10 TAB Prov:SHON BARRETO MD 12/15/18 Pantoprazole* (Protonix*) 40 Mg Tablet.dr, 40 MG PO DAILY, #20 TAB Prov:SHON BARRETO MD 12/15/18 Reported Medications Calcium Carbonate ([id number]-136) 500 Mg Tablet, 500 MG PO DAILY, TAB 11/13/18 Folic Acid* (Folic Acid*) 1 Mg Tablet, 1 MG PO DAILY, TAB 11/13/18 Mirtazapine* (Remeron*) 30 Mg Tablet, 30 MG PO HS, TAB 11/13/18 Allergies Allergies: Coded Allergies: No Known Drug Allergies (Verified Allergy, Unknown, 11/13/18) PMhx/Soc History of Surgery: Yes (bowel obstruction, ovarian cyst removal 1980, colonic mass) Anesthesia Reaction: No Hx Neurological Disorder: Yes (seizure; delirium tremens sec to alcohol intake) Hx Respiratory Disorders: No Hx Cardiac Disorders: No Hx Psychiatric Problems: Yes (sleep deprivation) Hx Miscellaneous Medical Probl: No Hx Alcohol Use: Yes Hx Substance Use: No Hx Tobacco Use: No Smoking Status: Never smoker FmHx Family History: diabetes Physical Exam Vitals Vital Signs Date Temp Pulse Resp B/P (MAP) Pulse Ox O2 O2 Flow FiO2 Time Delivery Rate 12/15/18 78 16 115/69 98 Room Air 19:27 (84) 12/15/18 99.5 99 18 134/79 99 16:32 (97) Physical Exam Const: Moderate distress Head: Atraumatic Eyes: Normal Conjunctiva ENT: Normal External Ears, Nose and Mouth. Neck: Full range of motion. No meningismus. Resp: Clear to auscultation bilaterally Cardio: Regular rate and rhythm, no murmurs Abd: Soft, diffuse tenderness to palpation without rebound or guarding Skin: No petechiae or rashes Back: No midline or flank tenderness Ext: No cyanosis, or edema Neur: Awake and alert Psych: Normal Mood and Affect Result Diagram: 12/15/18180312/15/181803 Results 24 hrs Laboratory Tests Test 12/15/18 18:04 White Blood Count 6.0 10^3/ul Red Blood Count 4.48 10^6/ul Hemoglobin 13.5 g/dl Hematocrit 39.7 % Mean Corpuscular Volume 88.6 fl Mean Corpuscular Hemoglobin 30.1 pg Mean Corpuscular Hemoglobin Concent 34.0 g/dl Red Cell Distribution Width 13.0 % Platelet Count 195 10^3/UL Mean Platelet Volume 9.4 fl Immature Granulocytes % 0.300 % Neutrophils % 48.7 % Lymphocytes % 41.8 % Monocytes % 7.0 % Eosinophils % 1.5 % Basophils % 0.7 % Nucleated Red Blood Cells % 0.0 /100WBC Immature Granulocytes # 0.020 10^3/ul Neutrophils # 2.9 10^3/ul Lymphocytes # 2.5 10^3/ul Monocytes # 0.4 10^3/ul Eosinophils # 0.1 10^3/ul Basophils # 0.0 10^3/ul Nucleated Red Blood Cells # 0.0 10^3/ul Urine Color COLORLESS Urine Clarity CLEAR Urine pH 7.0 Urine Specific [place] 1.002 Urine Ketones NEGATIVE mg/dL Urine Nitrite NEGATIVE mg/dL Urine Bilirubin NEGATIVE mg/dL Urine Urobilinogen NEGATIVE mg/dL Urine Leukocyte Esterase NEGATIVE Natacha/ul Urine Microscopic RBC 0 /HPF Urine Microscopic WBC 0 /HPF Urine Hemoglobin NEGATIVE mg/dL Urine Glucose NEGATIVE mg/dL Urine Total Protein NEGATIVE mg/dl Sodium Level 141 mmol/L Potassium Level 3.9 mmol/L Chloride Level 105 mmol/L Carbon Dioxide Level 23 mmol/L Anion Gap 13 Blood Urea Nitrogen 14 mg/dl Creatinine 0.84 mg/dl Est Glomerular Filtrat Rate mL/min > 60 mL/min Glucose Level 107 mg/dl Calcium Level 10.2 mg/dl Total Bilirubin 0.6 mg/dl Direct Bilirubin 0.00 mg/dl Indirect Bilirubin 0.6 mg/dl Aspartate Amino Transf (AST/SGOT) 31 IU/L Alanine Aminotransferase (ALT/SGPT) 19 IU/L Alkaline Phosphatase 141 IU/L Total Protein 8.0 g/dl Albumin 4.8 g/dl Globulin 3.20 g/dl Albumin/Globulin Ratio 1.50 Lipase 83 U/L Current Medications Medications Dose Sig/Felicia Start Time Status Last (Trade) Ordered Route PRN Stop Time Admin Dose Reason Admin Ondansetron 4 mg ONCE STAT 12/15/18 DC 12/15/18 HCl (Zofran IV 17:52 18:14 Inj) 12/15/18 17:53 Ketorolac 30 mg ONCE STAT 12/15/18 DC 12/15/18 Tromethamine IV 17:52 18:14 (Toradol) 12/15/18 17:53 40 mg ONCE ONCE 12/15/18 DC 12/15/18 Pantoprazole IV 19:30 19:23 (Protonix 12/15/18 19:31 Iv) Procedures/MDM CT abdomen pelvis is pending at this time. Patient is a 58-year-old female presents with abdominal pain over the past 1 week. Laboratory studies were normal. CT scan of the abdomen pelvis is pen ding. The patient will be signed out to the oncoming physician. If the CT scan is negative the patient will be discharged with Protonix and Zofran. I doubt appendicitis, cholecystitis, pancreatitis, or pyelonephritis. The CT scan will be able to rule in or rule out bowel obstruction. Departure Diagnosis: Primary Impression: Abdominal pain Abdominal location: generalized Qualified Codes: R10.84 - Generalized abdominal pain Condition: Fair Patient Instructions: Abdominal Pain Referrals: Dr. Sierra Additional Instructions: Call your primary care doctor TOMORROW for an appointment during the next 1-2 days.See the doctor sooner or return here if your condition worsens before your appointment time. SHON BARRETO MD Dec 15, 2018 20:12
[2018-12-15] MEDS ORDERED: QUET25TA33 PO (20:48)
[2018-12-15 21:28] VITALS: BP 137/83; PULSE 91; RESP 16
== END 2018-12-15 21:29 | disposition home or self-care (01) ==
LOC: E/R 16:28
DX: R10.84 Generalized abdominal pain (principal)
CPT/HCPCS: 36415; 74176; 80053; 81003; 83690; 85025; 96374; 96375; 99285; C9113; J1885; J2405